=== PATIENT | female | born 1960 | race Caucasian/White ===

== ENCOUNTER → 2019-09-04 18:48 | Outpatient (BNVA) | payer MEDICARE, MEDICAID, SELFPAY | PROVIDERS: Family Provider Family Medicine; PCP Family Medicine; Visit Provider Nurse Practitioner | DX: R39.9 Unspecified symptoms and signs involving the genitourinary system (principal) | CPT/HCPCS: 81003; 87086 ==

== ENCOUNTER → 2019-09-17 16:46 | Outpatient (BNVA) | payer MEDICARE, MEDICAID, SELFPAY | PROVIDERS: Family Provider Family Medicine; PCP Family Medicine; Visit Provider Nurse Practitioner | DX: R05 Cough (principal) | CPT/HCPCS: 87804 ==

== ENCOUNTER → 2019-10-02 15:02 | Outpatient (BNVA) | payer MEDICARE, MEDICAID, SELFPAY | PROVIDERS: Family Provider Family Medicine; PCP Family Medicine; Visit Provider Family Medicine | DX: E11.9 Type 2 diabetes mellitus without complications (principal); R35.0 Frequency of micturition; E78.2 Mixed hyperlipidemia; N30.00 Acute cystitis without hematuria; I10 Essential (primary) hypertension | CPT/HCPCS: 81003; 87086 ==

== ENCOUNTER → 2019-10-10 08:38 | Outpatient (BNVA) | payer MEDICARE, MEDICAID, SELFPAY | PROVIDERS: Family Provider Family Medicine; PCP Family Medicine; Visit Provider Family Medicine | DX: E78.2 Mixed hyperlipidemia (principal); N30.00 Acute cystitis without hematuria; E11.9 Type 2 diabetes mellitus without complications | CPT/HCPCS: 80053; 80061; 81003; 83036 ==

== ENCOUNTER 2019-11-23 15:47 | Outpatient (CLI) | payer MEDICARE, MEDICAID, SELFPAY ==
--- NOTE | 2019-11-23 | USCV_ITS ---
JyotiklaudiaMi Age: 59 Gender: F : 1960 Exam Date: 11/23/2019 16:13 Ordering Phys: Alice Alvarado Technologist: Fiona Fernandez Exam Location: [facility] Indication: HX OF RT ICA ENDART Risk Factors: Previous Vascular Surgery: Right Brachial BP: / Left Brachial BP: / Right Left Velocity (cm/s) Spectral Plaque Velocity (cm/s) Spectral Plaque Syst/Diast Broadening Syst/Diast Broadening 78.90/ 18.30 Prox CCA 93.80 / 18.20 62.10/ 11.00 Mid CCA 88.20 / 22.40 34.00/ 6.00 Distal CCA 77.00 / 14.00 63.60/ 18.30 Prox ICA 158.40/ 49.80 66.20/ 21.80 Mid ICA 167.50/ 43.00 63.60/ 20.00 Distal ICA 174.30/ 29.40 119.20 ECA 99.20 0.84 ICA/CCA 1.86 Antegrade Vertebral Occluded 53.10/ 13.10 cm/s / cm/s Bi Subclavian Tri 65.30 147.1 0 CONCLUSIONS Right ICA stenosis <50%. Mild atheromatous plaque right carotid bulb/ICA. Prior right CEA. Left ICA stenosis 50-69%. Moderate atheromatous plaque left carotid bulb/ICA. Normal antegrade Doppler flow noted in the right vertebral artery. Ocluded left vertebral artery. Aaron Arreola MD (Electronically Signed) Final Date: 24 November 2019 11:04 S
== END 2019-11-23 15:48 | disposition home or self-care (01) ==
LOC: RAD 15:52
PROVIDERS: Family Provider Family Medicine; PCP Family Medicine; Visit Provider Nurse Practitioner
DX: I65.23 Occlusion and stenosis of bilateral carotid arteries
CPT/HCPCS: 93880

== ENCOUNTER → 2019-12-09 11:29 | Outpatient (BNVA) | payer MEDICARE, MEDICAID, SELFPAY | PROVIDERS: Family Provider Family Medicine; PCP Family Medicine; Visit Provider Nurse Practitioner Family | DX: N30.00 Acute cystitis without hematuria (principal) | CPT/HCPCS: 81000; 87086 ==

== ENCOUNTER → 2020-01-18 10:05 | Outpatient (BNVA) | payer MEDICARE, MEDICAID, SELFPAY | PROVIDERS: Family Provider Family Medicine; PCP Family Medicine; Visit Provider Family Medicine | DX: E11.9 Type 2 diabetes mellitus without complications (principal); Z12.83 Encounter for screening for malignant neoplasm of skin; R52 Pain, unspecified | CPT/HCPCS: 80053; 83036 ==

== ENCOUNTER → 2020-02-18 12:07 | Outpatient (BNVA) | payer MEDICARE, MEDICAID, SELFPAY | PROVIDERS: Family Provider Family Medicine; PCP Family Medicine; Visit Provider Nurse Practitioner | DX: N30.00 Acute cystitis without hematuria (principal); R82.90 Unspecified abnormal findings in urine | CPT/HCPCS: 81000; 87086 ==

== ENCOUNTER → 2020-05-02 08:04 | Outpatient (BNVA) | payer MEDICARE, MEDICAID, SELFPAY | PROVIDERS: Family Provider Family Medicine; PCP Family Medicine; Visit Provider Nurse Practitioner Psychiatric/Mental Health | DX: F33.2 Major depressive disorder, recurrent severe without psychotic features (principal); F41.1 Generalized anxiety disorder | CPT/HCPCS: 99214; 99999 ==

== ENCOUNTER → 2020-05-17 10:36 | Outpatient (BNVA) | payer MEDICARE, MEDICAID, SELFPAY | PROVIDERS: Family Provider Family Medicine; PCP Family Medicine; Visit Provider Nurse Practitioner Family | DX: N30.00 Acute cystitis without hematuria (principal); R31.29 Other microscopic hematuria | CPT/HCPCS: 81000; 87086 ==

== ENCOUNTER → 2020-05-30 09:18 | Outpatient (BNVA) | payer MEDICARE, MEDICAID, SELFPAY | PROVIDERS: Family Provider Family Medicine; PCP Family Medicine; Visit Provider Nurse Practitioner Psychiatric/Mental Health | DX: F33.2 Major depressive disorder, recurrent severe without psychotic features (principal); F41.1 Generalized anxiety disorder | CPT/HCPCS: 99214 ==

== ENCOUNTER 2020-06-04 12:31 | Outpatient (CLI) | payer MEDICARE, MEDICAID, SELFPAY ==
--- NOTE | 2020-06-04 12:38 | XR_ITS ---
WS: [id number] Left shoulder, 3 views, 06/04/2020 Clinical Data: left shoulder pain Comparison: None. Findings: No fractures or dislocations are seen. The AC joint is normal. The adjacent left clavicle, left scapu la and ribs are normal. The soft tissues are unremarkable. There are midline sternotomy sutures and an anterior cervical disc fusion. XR/XR shoulder LT min 2V* [id number] Impression: Negative left shoulder.
== END 2020-06-04 12:32 | disposition home or self-care (01) ==
LOC: RADWPI 12:35
PROVIDERS: PCP Family Medicine; Visit Provider Family Medicine
DX: M25.512 Pain in left shoulder (principal)
CPT/HCPCS: 73030

== ENCOUNTER 2020-06-20 14:08 | Outpatient (CLI) | payer MEDICARE, MEDICAID, SELFPAY ==
--- NOTE | 2020-06-20 14:24 | MR_ITS ---
WS: [id number] MRI CERVICAL SPINE HISTORY: CERVICAL DISC DISEASE WITH MYELOPATHY / COMPARISON: 12/07/2018 Normal anterior cervical alignment. Prior anterior cervical fusion plate and interbody spacers extend s from C5 through C7. No marrow edema or change in position. Disc desiccation throughout the cervical spine. No inferior displacement of cerebellar tonsils. Craniocervical junction, C1 and C2 relationship, odontoid process and soft tissues are normal. C2-C3: Normal. C3-C4: Mild osteophytes with mild encroachment upon the ventral thecal sac. Mild central and foramina l narrowing. C4-C5: Diffuse moderate osteophytic ridging and annular disc bulging. Effacement of ventral CSF. Mode rate central and bilateral foraminal stenosis. C5-C6: Mild osteophytic ridging. Very mild narrowing of the central canal and foramen. C6-C7: Mild annular disc bulging and osteophytes. Mild central and foraminal narrowing. C7-T1: Mild osteophytic ridging with encroachment upon the ventral thecal sac and foramen. Mild centr al stenosis with moderate bilateral foraminal narrowing. Paravertebral soft tissues are negative. MR/MR cervical spin wo con* [id number] IMPRESSION: 1. Prior anterior cervical fusion with interbody spacers from C5 to C7 is inta ct. No interval change. 2. Multilevel central and foraminal stenosis. No significant progression since 12/07/2018. 3. Moderate central stenosis at C4-5 and mild bilateral foraminal stenosis. 4. Mild central and foraminal stenosis at C3-4, C5-6 and C6-7. 5. Mild central and bilateral foraminal narrowing at C7-T1.
== END 2020-06-20 14:09 | disposition home or self-care (01) ==
PROVIDERS: PCP Family Medicine; Visit Provider Family Medicine
DX: M50.00 Cervical disc disorder with myelopathy, unspecified cervical region (principal); M43.22 Fusion of spine, cervical region; M48.02 Spinal stenosis, cervical region
CPT/HCPCS: 72141

== ENCOUNTER → 2020-06-25 08:21 | Outpatient (BNVA) | payer MEDICARE, MEDICAID, SELFPAY | PROVIDERS: PCP Family Medicine; Referring Provider Family Medicine; Visit Provider Anesthesiology Pain Medicine | DX: M50.00 Cervical disc disorder with myelopathy, unspecified cervical region (principal); M75.02 Adhesive capsulitis of left shoulder; M19.012 Primary osteoarthritis, left shoulder | CPT/HCPCS: 99204 ==

== ENCOUNTER → 2020-07-11 08:35 | Outpatient (BNVA) | payer MEDICARE, MEDICAID, SELFPAY | PROVIDERS: PCP Family Medicine; Visit Provider Nurse Practitioner Psychiatric/Mental Health | DX: F33.2 Major depressive disorder, recurrent severe without psychotic features (principal); F41.1 Generalized anxiety disorder | CPT/HCPCS: 99213 ==

== ENCOUNTER 2020-07-24 08:26 | Outpatient (CLI) | payer MEDICARE, MEDICAID, SELFPAY ==
--- NOTE | 2020-07-24 08:42 | MR_ITS ---
WS: [id number] MRI LEFT SHOULDER NONCONTRAST TECHNIQUE: Sagittal T2, coronal T1, T2 and proton density imaging. Axial gradient PDE imaging. CLINICAL INFORMATION: PAIN LOSS OF FUNCTION COMPARISON: None. FINDINGS: Moderate degenerative arthritis at the AC joint with edema. Small amount of fluid in the AC joint. Mi ld downsloping acromion. Mild narrowing of the subacromial space. Mild chronic thinning of the supras pinatus. Supraspinatus is intact. Infraspinatus is intact. Normal teres minor and subscapularis. Normal biceps tendon in the bicipital groove. Degenerative fraying of the glenoid labrum which appear s grossly intact. Moderate degenerative arthritis glenohumeral joint. Normal soft tissues. Normal bic eps labral anchor. MR/MR shoulder LT wo con* [id number] IMPRESSION: 1. Moderate degenerative arthritis at the AC joint with mild edema and mild do wnsloping acromion. 2. Mild chronic thinning of the distal supraspinatus appears intact. Rotator c uff is otherwise intact. 3. Normal biceps tendon in the bicipital groove. 4. Degenerative fraying of the glenoid labrum. 5. Normal visualized soft tissues.
== END 2020-07-24 08:27 | disposition home or self-care (01) ==
LOC: RADWPI 08:32
PROVIDERS: PCP Family Medicine; Visit Provider Anesthesiology Pain Medicine
DX: M19.012 Primary osteoarthritis, left shoulder (principal)
CPT/HCPCS: 73221

== ENCOUNTER → 2020-07-29 09:38 | Outpatient (BNVA) | payer MEDICARE, MEDICAID, SELFPAY | PROVIDERS: PCP Family Medicine; Visit Provider Family Medicine | DX: E11.9 Type 2 diabetes mellitus without complications (principal); E78.2 Mixed hyperlipidemia; I10 Essential (primary) hypertension | CPT/HCPCS: 80053; 80061; 83036 ==

== ENCOUNTER → 2020-08-07 08:30 | Outpatient (BNVA) | payer MEDICARE, MEDICAID, SELFPAY | PROVIDERS: PCP Family Medicine; Visit Provider Anesthesiology Pain Medicine | DX: M54.2 Cervicalgia (principal); M19.012 Primary osteoarthritis, left shoulder; M75.02 Adhesive capsulitis of left shoulder | CPT/HCPCS: 99213; 99214 ==

== ENCOUNTER → 2020-08-22 09:21 | Outpatient (BNVA) | payer MEDICARE, MEDICAID, SELFPAY | PROVIDERS: PCP Family Medicine; Visit Provider Nurse Practitioner Psychiatric/Mental Health | DX: F33.2 Major depressive disorder, recurrent severe without psychotic features (principal); F41.1 Generalized anxiety disorder | CPT/HCPCS: 99213 ==

== ENCOUNTER → 2020-09-02 14:37 | Outpatient (BNVA) | payer MEDICARE, MEDICAID, SELFPAY | PROVIDERS: PCP Family Medicine; Referring Provider Anesthesiology Pain Medicine; Visit Provider Specialist | DX: M25.512 Pain in left shoulder (principal) | CPT/HCPCS: 73020 ==

== ENCOUNTER 2020-09-10 14:01 | Outpatient (RCR) | payer MEDICARE, MEDICAID, SELFPAY | END 2020-09-29 23:59 | disposition home or self-care (01) | LOC: SPT 14:01 | PROVIDERS: PCP Family Medicine; Referring Provider Specialist; Visit Provider Specialist | DX: M19.012 Primary osteoarthritis, left shoulder (principal) | CPT/HCPCS: 97110; 97162 ==

== ENCOUNTER → 2020-10-17 08:10 | Outpatient (BNVA) | payer MEDICARE, MEDICAID, SELFPAY | PROVIDERS: PCP Family Medicine; Visit Provider Nurse Practitioner Psychiatric/Mental Health | DX: F33.2 Major depressive disorder, recurrent severe without psychotic features (principal); F41.1 Generalized anxiety disorder | CPT/HCPCS: 99214 ==

== ENCOUNTER 2020-11-19 13:06 | Outpatient (CLI) | payer MEDICARE, MEDICAID, SELFPAY ==
--- NOTE | 2020-11-19 13:10 | USCV_ITS ---
Mi Barreto Age: 60 Gender: F : 1960 Exam Date: 11/19/2020 13:21 Ordering Phys: Terence Turner MD Technologist: Randa Coelho Exam Location: [place] Indication: STENOSIS Risk Factors: RT ENDARTERECTOMY X 3 YRS Previous Vascular Surgery: Right Brachial BP: / Left Brachial BP: / Right Left Velocity (cm/s) Spectral Plaque Velocity (cm/s) Spectral Plaque Syst/Diast Broadening Syst/Diast Broadening 200.40/12.40 Prox CCA 64.80 / 10.60 118.10/35.70 Mid CCA 92.00 / 24.10 94.80/ 20.20 Distal CCA 73.90 / 13.60 69.90/ 26.40 Prox ICA 238.60/ 67.00 66.80/ 20.21 Mid ICA 234.70/ 53.20 79.20/ 28.00 Distal ICA 173.50/ 53.20 147.60 ECA 221.60 0.40 ICA/CCA 2.59 Antegrade Vertebral Antegrade 64.40/ 11.80 cm/s 88.70/ 13.80 cm/s Tri Subclavian Tri FINDINGS Moderate to heavy heterogeneous plaques of the left bifurcation and internal carotid artery Heavy heterogeneous plaques were also noted in the external carotid artery, in the proximal segment. Minimal plaques at the right bifurcation and proximal carotid artery Mild diffuse plaques in the common carotid arteries bilaterally Antegrade flow in the vertebral arteries bilaterally Elevated velocity in the left external carotid artery Normal Doppler flow velocities in the subclavian arteries bilaterally CONCLUSIONS Moderate to heavy heterogeneous plaques at the left bifurcation and internal carotid artery Doppler features, consistent with 50 to 69% stenosis. Minimal plaques of the right bifurcation, suggesting less than 50% stenosis. Elevated velocity in the external carotid artery on the left side, suggestive of hemodynamically significant stenosis. Compared to the study from 11/23/2019, there appears to have some progression of disease in the left side Dr Lizeth Escobar MD [facility] (Electronically Signed) Final Date: 20 November 2020 19:42 S
== END 2020-11-19 13:07 | disposition home or self-care (01) ==
LOC: US 13:08
PROVIDERS: PCP Family Medicine; Visit Provider Surgery
DX: I65.23 Occlusion and stenosis of bilateral carotid arteries (principal)
CPT/HCPCS: 93880

== ENCOUNTER → 2020-12-01 12:12 | Outpatient (BNVA) | payer MEDICARE, MEDICAID, SELFPAY | PROVIDERS: PCP Family Medicine; Visit Provider Nurse Practitioner Family | DX: J02.9 Acute pharyngitis, unspecified (principal) | CPT/HCPCS: 87071; 87880 ==

== ENCOUNTER → 2020-12-18 07:41 | Outpatient (BNVA) | payer MEDICARE, MEDICAID, SELFPAY | PROVIDERS: PCP Family Medicine; Visit Provider Nurse Practitioner Psychiatric/Mental Health | DX: F33.2 Major depressive disorder, recurrent severe without psychotic features (principal); F41.1 Generalized anxiety disorder | CPT/HCPCS: 99214 ==

== ENCOUNTER 2020-12-23 06:57 | Outpatient (CLI) | payer MEDICARE, MEDICAID, SELFPAY ==
--- NOTE | 2020-12-23 07:15 | USCV_ITS ---
Mi Barreto Age: 60 Gender: F : 1960 Exam Date: 12/23/2020 07:46 Ordering Phys: Lizeth Escobar MD ([email or web address]) Technologist: Michele Brantley Exam Location: [facility] Indication: PAD Risk Factors: Smoker Previous Vascular Surgery: CABG RIGHT LEFT BP: 120.0 / 70.00 BP: 120.0/ 701.00 0 0 Waveform Velocity (cm/s) Velocity (cm/s) Waveform Biphasic 129.0 Iliac Prox 138.7 Monophasic Biphasic 94.6 Iliac Mid 148.7 Monophasic Biphasic 89.7 Iliac Distal 165.4 Monophasic Biphasic 88.9 MOTION PICTURE CAMERAMAN 72.3 Monophasic Biphasic 93.8 SFA Prox 37.6 Monophasic Biphasic SFA Mid Monophasic 163.6 34.7 Biphasic 143.0 SFA Dist 30.8 Monophasic Biphasic 35.6 POP 35.7 Monophasic Biphasic 38.0 SCHOOL OPERATIONS MANAGER 21.2 Monophasic Biphasic 47.3 DPA 24.3 Monophasic 1.0 BORIS 0.6 FINDINGS Moderate diffuse plaques in the femoral and popliteal artery on the right side Moderate to heavy plaques in the left iliac artery Relatively low Doppler flow velocities in the femoral, popliteal and infrapopliteal vessels on the left side Resting BORIS 1.0 on the right side and 0.6 on the left side . CONCLUSIONS 1. Abnormal resting BORIS and Doppler features suggestive of high- grade stenosis in the left iliac artery. 2. Normal resting BORIS with abnormal Doppler features suggestive of less than 60% stenosis in the right superficial femoral artery 3. Moderate to heavy plaques in the left iliac artery 4. Moderate diffuse plaques in the right superficial femoral artery 5. No similar previous studies are available for comparison. Dr Lizeth Escobar MD [facility] (Electronically Signed) Final Date: 30 Dec 2020 08:31 S
== END 2020-12-23 06:58 | disposition home or self-care (01) ==
LOC: RAD 06:59
PROVIDERS: PCP Family Medicine; Visit Provider Internal Medicine Cardiovascular Disease
DX: I70.292 Other atherosclerosis of native arteries of extremities, left leg (principal)
CPT/HCPCS: 93925

== ENCOUNTER 2020-12-31 07:48 | Outpatient (CLI) | payer MEDICARE, MEDICAID, SELFPAY ==
--- NOTE | 2020-12-31 07:58 | CT_ITS ---
WS: [id number] CT ANGIOGRAM CEREBRAL AND CAROTID ARTERIES HISTORY: ASYMPTOMATIC BILATERAL CAROTID ARTERY STENOSIS TECHNIQUE: CT angiogram is performed of the carotid and cerebral arteries. During arterial injection imaging is obtained from the skull vertex to the aortic arch in 1.25 mm imaging. Coronal and sagittal reformats are submitted. Additional multi planar reformats of the carotid and cerebral arteries are submitted, MIP imaging also reviewed. NASCET criteria utilized. All CT scans at [facility] use at least one of these dose optimization techniques: automated exposure control; mA and/or kV ad justment per patient size (includes targeted exams where dose is matched to clinical indication); or iterative reconstruction. CONTRAST: Omnipaque 350; 95 mL IV. DLP: 2088.38 mGycm COMPARISON: 12/25/2015 Carotid Angiogram: Right carotid: Common carotid artery: Moderate stenosis involving the origin of the innominate from the aortic arch. Calcified plaque with no stenosis involving the origin of the RIGHT common carotid artery. Internal carotid artery: Small amount of plaque with no stenosis. No high-grade stenosis. External carotid artery: Patent. Left carotid: Common carotid artery: Calcified plaque at the origin of the common carotid artery. Internal carotid artery: Calcified plaque in the mid to distal common carotid artery extending throug h the bifurcation. LEFT ICA stenosis proximally 65%. External carotid artery: Patent. Right vertebral artery: Scattered calcified plaque throughout the RIGHT vertebral artery. Left vertebral artery: Small caliber vertebral artery. No occlusion. Subclavian arteries: Scattered plaque within the subclavian arteries. Upper thorax: Normal. Thyroid gland: Normal. Osseous structures: Prior anterior cervical fusion at C5-C7 with interbody spacers. CEREBRAL ANGIOGRAM: Intracranial vertebral arteries: Normal with no significant atherosclerosis. Basilar artery: No significant stenosis or occlusion. No aneurysm. Intracranial Internal carotid arteries: Mild scattered calcified plaque through the petrous and deangelo nous portions and supraclinoid portions of the ICAs. Moderate stenosis but probably less than 50% of the intracranial carotid arteries. Middle cerebral arteries: Normal. Anterior cerebral arteries and ACOM: Normal. Posterior cerebral arteries and PCOM's: Normal. Dural venous sinuses are normally enhancing. Mastoid air cells: Normal. Paranasal sinuses: Normal. Calvarium: Normal. CT/CT angio headneck* [id number] IMPRESSION: 1. Moderate LEFT ICA stenosis at 65%. Increased from 49% on 12/25/2015. 2. No significant carotid artery stenosis on the RIGHT. 3. Heavy calcified plaque at the origin of the innominate and also the LEFT co mmon carotid artery from the arch. Calcific burden has increased since 2016 but percent stenosis difficult to obtain due to significant artifact. There is at least 50% stenosis at the origins. Consider dedicated CTA of the aortic arch fo r further evaluation. 4. There is moderate scattered calcified plaque in the subclavian arteries and the intracranial carotid arteries.
[2020-12-31] MEDS: iohexol 350 mg/mL 100 mL Btl IV (08:33)
== END 2020-12-31 07:49 | disposition home or self-care (01) ==
PROVIDERS: PCP Family Medicine; Visit Provider Surgery
DX: I65.23 Occlusion and stenosis of bilateral carotid arteries (principal)
CPT/HCPCS: 70496; 70498; Q9967

== ENCOUNTER → 2021-01-07 14:20 | Outpatient (BNVA) | payer MEDICARE, MEDICAID, SELFPAY | PROVIDERS: PCP Family Medicine; Visit Provider Family Medicine | DX: I10 Essential (primary) hypertension (principal); E78.2 Mixed hyperlipidemia; E11.9 Type 2 diabetes mellitus without complications; Z00.00 Encounter for general adult medical examination without abnormal findings; M12.812 Other specific arthropathies, not elsewhere classified, left shoulder; F41.1 Generalized anxiety disorder | CPT/HCPCS: 80053; 80061; 83036 ==

== ENCOUNTER → 2021-01-24 11:06 | Outpatient (BNVA) | payer MEDICARE, MEDICAID, SELFPAY | PROVIDERS: PCP Family Medicine; Visit Provider Surgery | DX: Z01.812 Encounter for preprocedural laboratory examination (principal); Z20.822 Contact with and (suspected) exposure to COVID-19 | CPT/HCPCS: 87635 ==

== ENCOUNTER → 2021-02-10 11:33 | Outpatient (BNVA) | payer MEDICARE, MEDICAID, SELFPAY | PROVIDERS: PCP Family Medicine; Visit Provider Surgery | DX: Z01.812 Encounter for preprocedural laboratory examination (principal); Z20.822 Contact with and (suspected) exposure to COVID-19 | CPT/HCPCS: 87635 ==

== ENCOUNTER 2021-02-28 06:03 | Inpatient (IN) | payer MEDICARE, MEDICAID, SELFPAY ==
[2021-02-28] VITALS (19 sets, daily range): BP systolic 78–125; BP diastolic 46–89; PULSE 59–103; RESP 16–28; TEMP 36.8–37.6; O2SAT 80–99; BMI 33.7
[2021-02-28 06:21] LABS: Glucose Point of Care 444 mg/dL (70-110)
--- NOTE | 2021-02-28 06:26 | XRR_ITS ---
PROCEDURE INFORMATION: Exam: XR Chest Exam date and time: 02/28/2021 6:26 AM Age: 60 years old Clinical indication: Cough and shortness of breath; Prior surgery; Surgery date: 6+ months; Surgery type: Open heart; Patient HX: C/O shortness of breath; Dyspnea; Hypoxia; Additional info: Dyspnea. , Hypoxia TECHNIQUE: Imaging protocol: XR of the chest. Views: 1 view. COMPARISON: CR XR shoulder LT 1V [id number] 09/02/2020 2:43 PM FINDINGS: Lungs: Bilateral interstitial pulmonary infiltrates are present with patchy basilar consolidation. This is consistent with bilateral pneumonia. This could be viral. Pleural spaces: Unremarkable. No pleural effusion. No pneumothorax. Heart/Mediastinum: The patient has undergone coronary bypass surgery and lower cervical spine fusion. The heart is normal for the AP projection. Bones/joints: No acute bony abnormality. XR/XR chest 1V portable [id number] IMPRESSION: Bilateral pulmonary infiltrates consistent with pneumonia. This may be viral in nature.
--- NOTE | 2021-02-28 06:46 | ED_ITS ---
HPI - COVID General: Chief Complaint: COVID symptoms Stated Complaint: DIFF BREATHING Time Seen by Provider: 02/28/21 06:08 Triage information: Has fever, cough or shortness of breath . No known COVID + exposure last 14 days History of Present Illness: HPI Narrative: 60-year-old female presents emergency room with complaints of shortness of breath. Patient had a femoropopliteal bypass within the last week. She has had cough low-grade fever myalgias headache loose stools that began yesterday. She has not had any anosmia at this point. She denies any chest pain the cough has been nonproductive MD complaint: has COVID symptoms Prior covid testing: yes, results known (Presurgical testing was negative) COVID 19 common symptoms: positive fever(s), chills, cough, non-productive cough, dyspnea, fatigue, body aches, headache(s), nasal congestion and nausea COVID 19 other sytmptoms: positive requiring oxygen; negative chest pain Onset (ago): hour(s) Severity: severe Pertinent comorbid conditions: hypertension, heart disease, COPD/respiratory disease and obesity COVID Results: SARS-CoV-2 Antigen (Rapid) Positive (Negative) H 02/28/21 06:20 02/28/21 SARS-CoV-2 RNA (RT-PCR) Detected (NOT DETECTED) A 02/28/21 07:50 02/28/21 Nasal/Oral Coronavirus 2019 PCR Not detected 02/10/21 11:33 02/10/21 Review of Systems Const: Reports: fever(s), chills, body aches and fatigue ENMT: Reports: nasal congestion Card: Denies: chest pain, edema, dyspnea on exertion or orthopnea Resp: Reports: dyspnea and non-productive cough GI: Reports: nausea : Denies: flank pain, difficulty voiding, dysuria, urinary frequency or urinary urgency Skin/Breast: Denies: rash or pruritus Neuro: Reports: headache(s) PFSH ED PFSH: Medical History (Updated 03/02/21 @ 15:39 by Ishan Bryant DO) ASHD (arteriosclerotic heart disease) Carotid artery stenosis Carpal tunnel syndrome Cervical disc disease with myelopathy Diabetes Generalized anxiety disorder GERD (gastroesophageal reflux disease) Hyperlipidemia Hypertension Lumbar disc disease Major depressive disorder, recurrent episode, severe with seasonal pattern Obesity Peripheral vascular disease Surgical History (Updated 03/02/21 @ 03:24 by Capri Ware MD) H/O hernia repair H/O hysterectomy with oophorectomy H/O neck surgery History of bladder surgery History of carotid endarterectomy History of femoropopliteal bypass Hx of CABG Hx of tubal ligation Family History Father CAD (coronary artery disease) Diabetes Stroke Grandmother CAD (coronary artery disease) Family/Other Cancer Mother Dementia Brother Diabetes Grandfather Lung disease Denies family history of Clotting disorder Chronic kidney disease (CKD) Suicide Anesthesia complication Bleeding disorder Social History Smoking and tobacco status: former smoker Alcohol intake: never History of recent travel: No Current gender identity: Female Physical Exam Const: GENERAL APPEARANCE: cooperative ORIENTATION/CONSCIOUSNESS: Yes awake, Yes oriented to person, Yes oriented to place and Yes oriented to time HENMT: COMMON NORMALS: normocephalic, atraumatic and hearing grossly normal bilaterally HEAD & SCALP: normocephalic and atraumatic Neck/C-Spine: COMMON NORMALS: no JVD Resp: AUSCULTATION: crackles and wheezes Cardio: COMMON NORMALS: no JVD, regular rate, regular rhythm and No murmurs present (Cardio) RATE: regular rate RHYTHM: regular rhythm GI: COMMON NORMALS: Soft to palpation and No hepatosplenomegaly present AUSCULTATION: Yes normoactive bowel sounds PALPATION: Yes Soft to palpation, No Tenderness to palpation present (GI), No Guarding due to palpation present (GI) and Yes No hepatosplenomegaly present Extremity: COMMON NORMALS: normal to inspection, capillary refill normal, no clubbing, cyanosis or edema, no calf tenderness and no pedal edema Neuro: SENSORIUM/ORIENTATION: Yes oriented to person, Yes oriented to place and Yes oriented to time Skin: COMMON NORMALS: no rashes or lesions noted GENERAL SKIN EXAM: no rashes or lesions noted Course Vital Signs: Vital signs: Vital Signs Temperature 98.1 F 03/02/21 12:00 Pulse Rate 81 03/02/21 12:00 Respiratory Rate 16 03/02/21 12:00 Blood Pressure 115/74 03/02/21 12:00 Pulse Oximetry 95 03/02/21 12:00 MDM - COVID MDM Narrative: Medical decision making narrative: Severe Covid pneumonitis will admit to start remdesivir and dexamethasone. Discussed Dr. Smith he will evaluate for Actemra. Patient on high flow nasal cannula at this time. Lab Data: Labs: Lab Results 02/28/21 02/28/21 02/28/21 Range/Units 06:16 06:20 07:25 WBC (4.0-10.0) 10^3/ uL RBC (4.1-5.3) 10^6/u L Hgb (11.5-15.3) g/dL Hct (37.0-47.0) % MCV (81-99) fL MCH (28.0-34.0) pg MCHC (30.0-36.0) g/dL RDW (12.1-15.1) % Plt Count (130-400) 10^3/c mm MPV (7.4-10.4) fL Neut % (Auto) % Lymph % (Auto) % Dickens % (Auto) % Eos % (Auto) % Baso % (Auto) % Neut # (Auto) (1.8-7.7) 10^3/u L Lymph # (Auto) (0.8-4.8) 10^3/u L Dickens # (Auto) (0.2-0.9) 10^3/u L Eos # (Auto) (0.0-0.8) 10^3/u L Baso # (Auto) (0.0-0.1) 10^3/u L Nucleated RBC % (a uto) % Nucleated RBCs # /100WBC D-Dimer (0-0.59) ug/mIFE U Specimen Type Arterial Sample Site Lr ABG pH 7.36 (7.35-7.45) ABG pCO2 33.2 L (35-45) mmHg ABG pO2 77.3 L (80.0-100.0) mmH g ABG HCO3 18.7 L (22-26) mmol/L ABG Base Excess -6.0 L (-2.0-2.0) mmol/ L Issa Test Pos Hematocrit 30.5 L (37-47) % O2 Delivery Device Nc O2 Liters/Min 7.0 % Petroleum Refining Firer ID Jmn Sodium (136-145) mmol/L Potassium (3.5-5.1) mmol/L Chloride (98-107) mmol/L Carbon Dioxide (22-29) mmol/L Anion Gap (5-19) BUN (6-20) mg/dL Creatinine (0.5-0.9) mg/dL GFR Calculation (90-130) mL/min Glucose (65-115) mg/dL POC Glucose 444 H (70-110) mg/dL Calculated Osmolal ity (285-295) mOsm/k g Lactic Acid (0.5-2.2) mmol/L Lactic Acid (Sepsi s) (0.5-2.2) mmol/L Calcium (8.5-10.5) mg/dL Total Bilirubin (0.15-1.2) mg/dL AST (0-32) U/L ALT (0-33) U/L Alkaline Phosphata se (35-105) IU/L Troponin T Gen 5 n g/L (0-10) ng/L C-Reactive Protein (0.0-4.9) mg/L NT-Pro-B Natriuret Pep (0-125) pg/mL Total Protein (6.6-8.7) g/dL Albumin (3.5-5.2) g/dL Globulin (1.3-4.6) g/dL Nasal/Oral COVID-1 9 PCR SARS-CoV-2 RNA (RT -PCR) (NOT DETECTED) SARS-CoV-2 Ag (Rap id) Positive H (Negative) 02/28/21 02/28/21 02/28/21 Range/Units 07:30 07:30 07:30 WBC 8.0 (4.0-10.0) 10^3/ uL RBC 2.99 L (4.1-5.3) 10^6/u L Hgb 9.0 L (11.5-15.3) g/dL Hct 29.4 L (37.0-47.0) % MCV 98.3 (81-99) fL MCH 30.1 (28.0-34.0) pg MCHC 30.6 (30.0-36.0) g/dL RDW 14.4 (12.1-15.1) % Plt Count 538 H (130-400) 10^3/c mm MPV 10.1 (7.4-10.4) fL Neut % (Auto) 83.1 % Lymph % (Auto) 10.8 % Dickens % (Auto) 5.0 % Eos % (Auto) 0.0 % Baso % (Auto) 0.4 % Neut # (Auto) 6.68 (1.8-7.7) 10^3/u L Lymph # (Auto) 0.9 (0.8-4.8) 10^3/u L Dickens # (Auto) 0.4 (0.2-0.9) 10^3/u L Eos # (Auto) 0.0 (0.0-0.8) 10^3/u L Baso # (Auto) 0.0 (0.0-0.1) 10^3/u L Nucleated RBC % (a uto) 0.4 % Nucleated RBCs # 0.0 /100WBC D-Dimer (0-0.59) ug/mIFE U Specimen Type Sample Site ABG pH (7.35-7.45) ABG pCO2 (35-45) mmHg ABG pO2 (80.0-100.0) mmH g ABG HCO3 (22-26) mmol/L ABG Base Excess (-2.0-2.0) mmol/ L Issa Test Hematocrit (37-47) % O2 Delivery Device O2 Liters/Min % Petroleum Refining Firer ID Sodium 128 L (136-145) mmol/L Potassium 6.2 H (3.5-5.1) mmol/L Chloride 89 L (98-107) mmol/L Carbon Dioxide 18 L (22-29) mmol/L Anion Gap 27.2 H (5-19) BUN 9 (6-20) mg/dL Creatinine 0.8 (0.5-0.9) mg/dL GFR Calculation 73.4 L (90-130) mL/min Glucose 407 H (65-115) mg/dL POC Glucose (70-110) mg/dL Calculated Osmolal ity 282 L (285-295) mOsm/k g Lactic Acid 6.1 H* (0.5-2.2) mmol/L Lactic Acid (Sepsi s) (0.5-2.2) mmol/L Calcium 8.3 L (8.5-10.5) mg/dL Total Bilirubin 0.7 (0.15-1.2) mg/dL AST 44 H (0-32) U/L ALT 20 (0-33) U/L Alkaline Phosphata se 95 (35-105) IU/L Troponin T Gen 5 n g/L (0-10) ng/L C-Reactive Protein 120.6 H (0.0-4.9) mg/L NT-Pro-B Natriuret Pep 2599 H (0-125) pg/mL Total Protein 6.5 L (6.6-8.7) g/dL Albumin 4.0 (3.5-5.2) g/dL Globulin 2.5 (1.3-4.6) g/dL Nasal/Oral COVID-1 9 PCR SARS-CoV-2 RNA (RT -PCR) (NOT DETECTED) SARS-CoV-2 Ag (Rap id) (Negative) 02/28/21 02/28/21 02/28/21 Range/Units 07:30 07:30 07:50 WBC (4.0-10.0) 10^3/ uL RBC (4.1-5.3) 10^6/u L Hgb (11.5-15.3) g/dL Hct (37.0-47.0) % MCV (81-99) fL MCH (28.0-34.0) pg MCHC (30.0-36.0) g/dL RDW (12.1-15.1) % Plt Count (130-400) 10^3/c mm MPV (7.4-10.4) fL Neut % (Auto) % Lymph % (Auto) % Dickens % (Auto) % Eos % (Auto) % Baso % (Auto) % Neut # (Auto) (1.8-7.7) 10^3/u L Lymph # (Auto) (0.8-4.8) 10^3/u L Dickens # (Auto) (0.2-0.9) 10^3/u L Eos # (Auto) (0.0-0.8) 10^3/u L Baso # (Auto) (0.0-0.1) 10^3/u L Nucleated RBC % (a uto) % Nucleated RBCs # /100WBC D-Dimer 3.55 H (0-0.59) ug/mIFE U Specimen Type Sample Site ABG pH (7.35-7.45) ABG pCO2 (35-45) mmHg ABG pO2 (80.0-100.0) mmH g ABG HCO3 (22-26) mmol/L ABG Base Excess (-2.0-2.0) mmol/ L Issa Test Hematocrit (37-47) % O2 Delivery Device O2 Liters/Min % Petroleum Refining Firer ID Sodium (136-145) mmol/L Potassium (3.5-5.1) mmol/L Chloride (98-107) mmol/L Carbon Dioxide (22-29) mmol/L Anion Gap (5-19) BUN (6-20) mg/dL Creatinine (0.5-0.9) mg/dL GFR Calculation (90-130) mL/min Glucose (65-115) mg/dL POC Glucose (70-110) mg/dL Calculated Osmolal ity (285-295) mOsm/k g Lactic Acid (0.5-2.2) mmol/L Lactic Acid (Sepsi s) (0.5-2.2) mmol/L Calcium (8.5-10.5) mg/dL Total Bilirubin (0.15-1.2) mg/dL AST (0-32) U/L ALT (0-33) U/L Alkaline Phosphata se (35-105) IU/L Troponin T Gen 5 n g/L 88 H (0-10) ng/L C-Reactive Protein (0.0-4.9) mg/L NT-Pro-B Natriuret Pep (0-125) pg/mL Total Protein (6.6-8.7) g/dL Albumin (3.5-5.2) g/dL Globulin (1.3-4.6) g/dL Nasal/Oral COVID-1 9 PCR Cancelled SARS-CoV-2 RNA (RT -PCR) (NOT DETECTED) SARS-CoV-2 Ag (Rap id) (Negative) 02/28/21 02/28/21 Range/Units 07:50 10:55 WBC (4.0-10.0) 10^3/ uL RBC (4.1-5.3) 10^6/u L Hgb (11.5-15.3) g/dL Hct (37.0-47.0) % MCV (81-99) fL MCH (28.0-34.0) pg MCHC (30.0-36.0) g/dL RDW (12.1-15.1) % Plt Count (130-400) 10^3/c mm MPV (7.4-10.4) fL Neut % (Auto) % Lymph % (Auto) % Dickens % (Auto) % Eos % (Auto) % Baso % (Auto) % Neut # (Auto) (1.8-7.7) 10^3/u L Lymph # (Auto) (0.8-4.8) 10^3/u L Dickens # (Auto) (0.2-0.9) 10^3/u L Eos # (Auto) (0.0-0.8) 10^3/u L Baso # (Auto) (0.0-0.1) 10^3/u L Nucleated RBC % (a uto) % Nucleated RBCs # /100WBC D-Dimer (0-0.59) ug/mIFE U Specimen Type Sample Site ABG pH (7.35-7.45) ABG pCO2 (35-45) mmHg ABG pO2 (80.0-100.0) mmH g ABG HCO3 (22-26) mmol/L ABG Base Excess (-2.0-2.0) mmol/ L Issa Test Hematocrit (37-47) % O2 Delivery Device O2 Liters/Min % Petroleum Refining Firer ID Sodium (136-145) mmol/L Potassium (3.5-5.1) mmol/L Chloride (98-107) mmol/L Carbon Dioxide (22-29) mmol/L Anion Gap (5-19) BUN (6-20) mg/dL Creatinine (0.5-0.9) mg/dL GFR Calculation (90-130) mL/min Glucose (65-115) mg/dL POC Glucose (70-110) mg/dL Calculated Osmolal ity (285-295) mOsm/k g Lactic Acid (0.5-2.2) mmol/L Lactic Acid (Sepsi s) 1.2 (0.5-2.2) mmol/L Calcium (8.5-10.5) mg/dL Total Bilirubin (0.15-1.2) mg/dL AST (0-32) U/L ALT (0-33) U/L Alkaline Phosphata se (35-105) IU/L Troponin T Gen 5 n g/L (0-10) ng/L C-Reactive Protein (0.0-4.9) mg/L NT-Pro-B Natriuret Pep (0-125) pg/mL Total Protein (6.6-8.7) g/dL Albumin (3.5-5.2) g/dL Globulin (1.3-4.6) g/dL Nasal/Oral COVID-1 9 PCR SARS-CoV-2 RNA (RT -PCR) Detected A (NOT DETECTED) SARS-CoV-2 Ag (Rap id) (Negative) COVID Results: SARS-CoV-2 Antigen (Rapid) Positive (Negative) H 02/28/21 06:20 02/28/21 SARS-CoV-2 RNA (RT-PCR) Detected (NOT DETECTED) A 02/28/21 07:50 02/28/21 Nasal/Oral Coronavirus 2019 PCR Not detected 02/10/21 11:33 02/10/21 Discharge Plan Discharge Patient Disposition: Admitted As Inpatient Admit Provider: Khang Gallardo Clinical Impression: Pneumonia due to COVID-19 virus, ASHD (arteriosclerotic heart disease), Carotid artery stenosis, Hypertension, Diabetes, Hyperkalemia, Anemia Condition: Stable Coding Level of Care Code ED Java Scala Developer for Reji Crouch
[2021-02-28] MEDS: dexamethasone 4 mg/mL INJ 6 MG IVP ×2 (07:32→08:32)
[2021-02-28 07:36] LABS: Basophils % 0.4 %; Hematocrit 29.4 % (37.0-47.0); Lymphocytes # 0.9 10^3/uL (0.8-4.8); Lymphocytes % 10.8 %; Mean Corpuscular HGB Conc 30.6 g/dL (30.0-36.0); Mean Corpuscular Hemoglobin 30.1 pg (28.0-34.0); Mean Corpuscular Volume 98.3 fL (81-99); Mean Platelet Volume 10.1 fL (7.4-10.4); Monocytes # 0.4 10^3/uL (0.2-0.9); Neutrophils # 6.68 10^3/uL (1.8-7.7); Neutrophils % 83.1 %; Nucleated Red Blood Cells % 0.4 %; Platelet Count 538 10^3/cmm (130-400); Red Blood Count 2.99 10^6/uL (4.1-5.3); Red Cell Distribution Width 14.4 % (12.1-15.1)
[2021-02-28 07:41] LABS: ABG PCO2 33.2 mmHg (35-45); ABG PH Result 7.36 (7.35-7.45); HCO3 ABG 18.7 mmol/L (22-26); PO2 ABG 77.3 mmHg (80.0-100.0)
[2021-02-28 07:42] LABS: Arterial Blood Gas Hematocrit 30.5 % (37-47); Blood Gas Allen Test POS; Blood Gas Sample Site LR; Blood Gas Sample Type ARTERIAL; Oxygen Device NC
[2021-02-28 08:02] LABS: Lactic Sepsis W/Reflex 6.1 mmol/L (0.5-2.2)
[2021-02-28 08:09] LABS: Alanine Aminotransferase 20 U/L (0-33); Alkaline Phosphatase 95 IU/L (35-105); Anion Gap 27.2 (5-19); Aspartate Amino Transferase 44 U/L (0-32); Blood Urea Nitrogen 9 mg/dL (6-20); C Reactive Protein 120.6 mg/L (0.0-4.9); Calcium 8.3 mg/dL (8.5-10.5); Carbon Dioxide 18 mmol/L (22-29); Chloride 89 mmol/L (98-107); Globulin 2.5 g/dL (1.3-4.6); Glomerular Filtration Rate 73.4 mL/min (90-130); Glucose 407 mg/dL (65-115); NT Pro B Type Natriuretic Pept 2599 pg/mL (0-125); Osmolality Calculated 282 mOsm/kg (285-295); Potassium 6.2 mmol/L (3.5-5.1); Sodium 128 mmol/L (136-145); Total Bilirubin 0.7 mg/dL (0.15-1.2); Total Protein 6.5 g/dL (6.6-8.7)
[2021-02-28 08:18] LABS: D Dimer 3.55 ug/mIFEU (0-0.59)
--- NOTE | 2021-02-28 08:19 | CT_ITS ---
WS: [id number] CT angio chest PE protcl [id number] REASON FOR EXAM: elevated d dimer TECHNIQUE: Coronal and sagittal 2-D and MIP reformations. IV CONTRAST ADMINISTERED: 80 mL of Omnipaque 350 TOTAL EXAM DLP: 511.[address] scans at [facility] use at least one of these dose optimization techniques: automat ed exposure control; mA and/or kV adjustment per patient size (includes targeted exams where dose is matched to clinical indication); or iterative reconstruction. FINDINGS: No pulmonary emboli. Questionable enlarged subcarinal lymph node. There is mild symmetric lymph node enlargement in both h ilar regions maximum solange dimensions 14 x 16 mm. Diffuse symmetric increase in the interstitium throughout both lungs. There are small focal areas of groundglass density and small areas of joanie lung consolidation with air bronchograms. No lung mass i dentified. Small bilateral pleural effusions. CT/CT angio chest PE protcl [id number] IMPRESSION: No pulmonary emboli. The patient's chest x-ray is most 83 mL of Omnipaque 350 compatible with conges tive heart failure. The findings on the CT scan are also more compatible with c ongestive heart failure. However there are findings that are inconsistent with heart failure such as the adenopathy and the actual lung consolidation. This co uld represent a pneumonitis or a pneumonitis superimposed on congestive heart f ailure. The lymph nodes are borderline adenopathy and are of uncertain signific ance in this case.
[2021-02-28] MEDS: calcium gluconate 0.1 gm/mL 10% SDV 10mL 2 GM IVP (08:32)
[2021-02-28] MEDS: insulin regular-human 100 units/1 mL 10 UNIT IVP (08:32)
[2021-02-28] MEDS: sodium chloride 0.9% (100 ml) 100 ML 200 ML (08:33)
[2021-02-28 08:34] LABS: SARS Covid-2 Antigen Positive (Negative)
[2021-02-28] MEDS: ondansetron 2 mg/ML SDV 2 mL 4 MG IVP ×2 (08:44→16:07)
[2021-02-28] MEDS: remdesivir 200 MG in sodium chloride 0.9% (100 ml) 100 ML 100 MG IV (09:04)
[2021-02-28 09:20] LABS: Reflex Lactate Order REFLEX LACTIC ORDERD
[2021-02-28] MEDS: vancomycin 1,000 MG in sodium chloride 0.9% 250 ML 250 MG IV (09:21)
[2021-02-28] MEDS: piperacillin-tazobactam 3.375 GM in sodium chloride 0.9% (plus) 50 ML IV (09:26)
[2021-02-28] MEDS: iohexol 350 mg/mL 100 mL Btl IV (09:42)
[2021-02-28 11:52] LABS: Lactic Acid level (Lactate) 1.2 mmol/L (0.5-2.2)
--- NOTE | 2021-02-28 12:51 | PC.PHAR ---
PT IS UNABLE TO CONFIRM MEDICATIONS. SHE STATES THAT SHE TAKES CARE IF THEM BY HERSELF, SHE HAS NO ONE TO HELP HER. SHE STATES THAT SHE DOESN'T KNOW IF SHE TOOK HER MEDICATIONS TODAY OR NOT. GOING BY MEDICATION HISTORY AND PHARMACY LIST.
--- NOTE | 2021-02-28 16:06 | ECG_ITS ---
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: : 1960 Requested By: Ishan Naranjo Order Number: [id number] Reading MD: BUTCH MORENO Measurements Intervals [place] Rate: 87 P: 26 KS: 141 QRS: 64 QRSD: 96 T: 131 QT: 393 QTc: 475 Interpretive Statements SINUS RHYTHM NONSPECIFIC ST & T-WAVE ABNORMALITY INTERPRETATION BASED ON A DEFAULT AGE OF 40 YEARS No previous ECG available for comparison Electronically Signed On 03-01-2021 20:29:00 CDT by BUTCH MORENO [email or web address] [email or web address] at gulfportPrairieSmartsgrand lake joint township district memorial hospitalRipple Commerce/store/NU/[id number] f
--- NOTE | 2021-02-28 16:08 | PM.HP ---
Providers/Chief Complaint Admitting Physician: Khang Gallardo MD Primary Care Provider: Neto Elizabeth MD Chief Complaint: DIFF BREATHING History of Present Illness Mi Barreto is a 60 year old female who reports she has been ill only for the last several days. She has had a cough. No fever. She has had increasing shortness of breath. She has had significant runny nose. is sick with similar symptoms. She came into the emergency department and had a rapid positive test for Covid. She has some nausea, but has not vomited. No loose stools. No blood in her stool or black or tarry stools. About a week to 10 days ago she had a femoropopliteal bypass in [place]. She is recovering from this and doing well. Lyn are still present in her left leg. Review of Systems General: Reports: 10 or more systems reviewed and unremarkable except in HPI and below Const: Reports: fatigue and malaise; Denies: fever(s) or chills Eyes: Denies: change in vision ENMT: Reports: nasal congestion; Denies: throat pain Card: Denies: chest pain Resp: Reports: dyspnea GI: Reports: nausea; Denies: abdominal pain, vomiting, hematemesis, hematochezia or melena : Denies: flank pain Musc: Denies: neck pain Skin/Breast: Denies: rash Neuro: Denies: headache(s) Psych: Denies: anxiety Endo: Denies: polyuria Gil/Lymph: Denies: easy bruising All/Imm: Denies: urticaria Medications/Allergies Home Medications Medication Instructions Recorded Confirmed Last Taken Type acetaminophen 500 mg tablet 500 mg PO Q6H PRN 09/04/19 02/28/21 Unknown History aspirin 81 mg tablet,delayed 81 mg PO DAILY@0900 09/04/19 02/28/21 02/27/21 History release loperamide 2 mg tablet 2 mg PO Q4H PRN 09/04/19 02/28/21 Unknown History multivitamin 1 tab PO DAILY@0900 09/04/19 02/28/21 02/27/21 History lisinopril 40 mg tablet 40 mg PO DAILY #90 tab 03/01/20 02/28/21 02/26/21 Rx glyburide 5 mg tablet 2.5 mg PO BID@0900,1900 tab 05/15/20 02/28/21 02/27/21 History blood sugar diagnostic See Rx Instructions .ROUTE 12/03/20 02/28/21 Unknown Rx .COMPLEX #300 strip exenatide microspheres 2 mg/0.85 2 mg SUBCUT Q7D 30 Days #4.25 ml 12/23/20 02/28/21 02/24/21 Rx mL subcutaneous auto-injector amlodipine 5 mg tablet 2.5 mg PO DAILY@0900 tab 01/29/21 02/28/21 02/26/21 History Zetia 10 mg PO DAILY@0900 02/28/21 02/28/21 02/27/21 History alprazolam 0.5 mg PO TID@0900,1200,1900 PRN 02/28/21 02/28/21 02/27/21 History bupropion HCl [Wellbutrin XL] 150 mg PO DAILY@0900 02/28/21 02/28/21 02/27/21 History carvedilol 12.5 mg PO BID@0900,1900 02/28/21 02/28/21 02/27/21 History cilostazol 100 mg PO BID@0900,1900 02/28/21 02/28/21 Unknown History clopidogrel 75 mg PO DAILY@0900 02/28/21 02/28/21 Unknown History hydrochlorothiazide 12.5 mg PO DAILY@0900 02/28/21 02/28/21 02/27/21 History metformin 1,000 mg PO BID@0900,1900 02/28/21 02/28/21 02/27/21 History oxycodone-acetaminophen 1 tab PO Q4H PRN 02/28/21 02/28/21 02/27/21 History pioglitazone 30 mg PO DAILY@0900 02/28/21 02/28/21 02/27/21 History rivaroxaban [Xarelto] 2.5 mg PO BID 02/28/21 02/28/21 02/27/21 History sertraline [Zoloft] 100 mg PO DAILY@0900 02/28/21 02/28/21 02/27/21 History simvastatin 20 mg PO DAILY@0900 02/28/21 02/28/21 02/27/21 History Allergies Allergy/AdvReac Type Severity Reaction Status Date / Time egg Allergy vomiting Verified 02/28/21 06:16 influenza A (H1N1) virus Allergy unknown Verified 02/28/21 06:16 vaccine m-altaf-split 2008 [From influenza A (H1N1)] PFSH Acute PFSH: Medical History (Updated 02/28/21 @ 16:20 by Khang Gallardo MD) ASHD (arteriosclerotic heart disease) Carotid arterial disease Carotid artery stenosis Carpal tunnel syndrome Cervical disc disease Cervical disc disease with myelopathy Diabetes Generalized anxiety disorder GERD (gastroesophageal reflux disease) Hyperlipidemia Hypertension Lumbar disc disease Major depressive disorder, recurrent episode, severe with seasonal pattern Obesity Peripheral vascular disease Surgical History (Updated 02/28/21 @ 16:11 by Khang Gallardo MD) H/O hernia repair H/O hysterectomy with oophorectomy H/O neck surgery History of bladder surgery History of carotid endarterectomy History of femoropopliteal bypass Hx of CABG Hx of tubal ligation Family History Father CAD (coronary artery disease) Diabetes Stroke Grandmother CAD (coronary artery disease) Family/Other Cancer Mother Dementia Brother Diabetes Grandfather Lung disease Denies family history of Clotting disorder Chronic kidney disease (CKD) Suicide Anesthesia complication Bleeding disorder Social History Smoking and tobacco status: former smoker Alcohol intake: never History of recent travel: No Current gender identity: Female Vitals/I&O/Wt Last Vital Signs Temp 98.7 F 02/28/21 13:25 Pulse 91 02/28/21 13:25 Resp 16 02/28/21 13:25 BP 78/54 02/28/21 13:25 Pulse Ox 97 02/28/21 13:25 02/28/21 02/28/21 02/28/21 06:59 14:59 22:59 Intake Total 2254.13 / 2254.13 Output Total 300 / 300 Balance 1953.13 / 1953.13 Weight last 48 hrs Weight 78.471 kg Physical Exam Narrative: EXAM NARRATIVE: General exam is a white female, with persistent cough HEENT: Pupils equally round. Oropharynx clear. Neck is supple no lymphadenopathy or thyromegaly Cardiovascular regular rate and rhythm without murmur, no S3 or S4 Lungs few coarse breath sounds bilaterally but no crackles. Abdomen is soft nontender positive bowel sounds. No obvious organomegaly exam is deferred Extremities no cyanosis clubbing or edema. Surgical scar left medial thigh healing well. Left groin with lyn still intact. No drainage or evidence of infection. Data : 02/28/21 16:31 02/28/21 07:30 Micro: Microbiology 02/28/21 07:28 Blood Culture - Preliminary Blood SPECIMEN COLLECTED 02/28/21 07:30 Blood Culture - Preliminary Blood SPECIMEN COLLECTED Other data: EKG has been ordered Chest x-ray bilateral infiltrates. CTA pneumonitis, no pulmonary embolisms, small bilateral effusions, no enlarged lymph nodes. Dimer elevated at 3.55 ABG demonstrates pH 7.36, PCO2 33, PO2 of 77 on 7 L Lactic acid 6.1 Calcium 8.3 CRP 120 BNP 2599 AST 44 Rapid Covid positive Blood cultures were obtained A&P Assessment and plan (1) Pneumonia due to COVID-19 virus: Continue remdesivir initiated in the emergency department Continue dexamethasone Supplemental oxygen as needed, wean as tolerated Incentive spirometry Combivent every 6 hours Status: Acute (2) Hypoxemia: See above Status: Acute (3) Hyperkalemia: Interventions given in the emergency department including calcium gluconate, insulin and glucose. Check EKG Repeat potassium. If still high consider above therapies again as well as Kayexalate Status: Acute (4) Hypotension: Patient somewhat hypotensive She has been given fluid in the emergency department Large doses of IV fluid are contraindicated secondary to her pneumonia, Covid, and possible progression to ARDS. Blood cultures have been drawn Broad-spectrum antibiotics will be given Initiate norepinephrine if needed to keep MAP greater than or equal to 65 Status: Acute (5) Anemia: Anemia panel Protonix 40 mg twice daily Stool Hemoccult Continue to follow closely to make sure this does not worsen Status: Acute (6) Diabetes: Check serum ketones For now sliding scale insulin If ketones positive consider insulin drip for DKA Status: Acute Qualifiers: Diabetes mellitus complication status: without complication Diabetes mellitus technician terminal and repeater insulin use: without senior living use Diabetes mellitus type: type 2 Qualified Code(s): E11.9 - Type 2 diabetes mellitus without complications (7) ASHD (arteriosclerotic heart disease): History of coronary disease Continue patient's Plavix, statin Hold blood pressure medicines due to hypotension Check troponin, EKG Check Echo. Hold any further IV fluid, BNP elevated. Status: Acute Additional A&P Information Multiple other medical problems as listed in past medical history Full code Continue novel anticoagulant she is on chronically which will serve for DVT prophylaxis as well. Attestations Medical Necessity Statement*: Will need greater than 2 midnight stay secondary to COVID-19 pneumonia, with multiple other medical concerns. Time Spent in Patient Care: Greater than 35 minutes Critical Care Time: Critical Care Time (min): 65 Other Attestations: The high probability of a clinically significant, sudden or life threatening deterioration of the patient's [pulmonary, cardiac, electrolyte] system(s) required my full and direct attention, intervention and personal management. The critical care time is as shown. This time is in addition to time spent performing any reported procedures but includes the following: [x] Data and vital sign review and interpretation [x] Patient assessment, examination and intervention [x] Documentation [x] Medication orders and management Coding Level of Care Code Acute Spindraw Operator for [facility] Fwd Diagnoses Pneumonia due to COVID-19 virus U07.1; J12.82 Hypoxemia R09.02 Hyperkalemia E87.5 Hypotension I95.9 Anemia D64.9 Diabetes E11.9 Diabetes mellitus complication status: without complication Diabetes mellitus technician terminal and repeater insulin use: without senior living use Diabetes mellitus type: type 2 ASHD (arteriosclerotic heart disease) I25.10
[2021-02-28 16:45] LABS: Hematocrit 24.2 % (37.0-47.0); Hemoglobin 7.6 g/dL (11.5-15.3); Lymphocytes # 0.3 10^3/uL (0.8-4.8); Lymphocytes % 9.4 %; Mean Corpuscular HGB Conc 31.4 g/dL (30.0-36.0); Mean Corpuscular Hemoglobin 30.5 pg (28.0-34.0); Mean Corpuscular Volume 97.2 fL (81-99); Mean Platelet Volume 10.3 fL (7.4-10.4); Monocytes # 0.1 10^3/uL (0.2-0.9); Monocytes % 3.4 %; Neutrophils # 2.75 10^3/uL (1.8-7.7); Neutrophils % 86.3 %; Nucleated Red Blood Cells % 0 %; Platelet Count 268 10^3/cmm (130-400); Red Blood Count 2.49 10^6/uL (4.1-5.3); Red Cell Distribution Width 14.1 % (12.1-15.1); White Blood Count 3.2 10^3/uL (4.0-10.0)
[2021-02-28 17:09] LABS: Ketone (Acetest) Serum Negative (Negative)
[2021-02-28 17:19] LABS: Iron 11 ug/dL (37-145); Percent Saturation 3.5 % (20-50); Total Iron Binding Capacity 307 mcg/dl; Unsaturated Iron Binding 296 ug/dL (112-347)
[2021-02-28 17:26] LABS: Troponin T (5th) Once 191 ng/L (0-10)
[2021-02-28 17:27] LABS: Anion Gap 17.9 (5-19); Blood Urea Nitrogen 17 mg/dL (6-20); Calcium 7.6 mg/dL (8.5-10.5); Carbon Dioxide 21 mmol/L (22-29); Chloride 96 mmol/L (98-107); Glomerular Filtration Rate 64.1 mL/min (90-130); Glucose 317 mg/dL (65-115); Iron 12 ug/dL (37-145); Osmolality Calculated 284 mOsm/kg (285-295); Potassium 4.9 mmol/L (3.5-5.1); Sodium 130 mmol/L (136-145); Thyroid Stimulating Hormone 0.23 uIU/mL (0.27-4.20)
--- NOTE | 2021-02-28 17:29 | CTR_ITS ---
PROCEDURE INFORMATION: Exam: CT Abdomen And Pelvis Without Contrast Exam date and time: 02/28/2021 5:29 PM Age: 60 years old Clinical indication: Abnormal findings; Abnormal lab test; Prior surgery; Surgery date: 6+ months; Surgery type: Cabg, hernia, hyst, bladder, and recent fem pop; Patient HX: Decreasing hgb, recent vascular surgery left fempop TECHNIQUE: Imaging protocol: Computed tomography of the abdomen and pelvis without contrast. Radiation optimization: All CT scans at this facility use at least one of these dose optimization techniques: automated exposure control; mA and/or kV adjustment per patient size (includes targeted exams where dose is matched to clinical indication); or iterative reconstruction. COMPARISON: CT angio chest PE protcl [id number] 02/28/2021 9:37 AM RADIATION DOSE METRICS: Total DLP (mGy-cm): 1652.45 FINDINGS: Lungs: Patchy scattered ground-glass lesions throughout the included lower lungs. Mild septal thickening changes. Pleural spaces: Small volume bilateral pleural effusions. Liver: Normal. No mass. Gallbladder and bile ducts: Cholelithiasis. No gallbladder wall thickening. Pancreas: Normal. No ductal dilation. Spleen: Normal. No splenomegaly. Adrenal glands: Normal. No mass. Kidneys and ureters: There is contrast retention in the kidneys. Negative for hydronephrosis. No perinephric inflammation. Stomach and bowel: Unremarkable. No obstruction. No mucosal thickening. Appendix: No evidence of appendicitis. Intraperitoneal space: Negative for hemoperitoneum. Negative for pneumoperitoneum. Retroperitoneal space: Negative for retroperitoneal hematoma. Vasculature: Extensive atherosclerotic wall plaques. Negative for abdominal aortic aneurysm. Lymph nodes: Unremarkable. No enlarged lymph nodes. Urinary bladder: Unremarkable as visualized. Reproductive: Hysterectomy. Bones/joints: Unremarkable. No acute fracture. Soft tissues: There is partial visualization of lobulated areas of low-attenuation fluid in the subcutaneous fat of the left groin. Lumbar paraspinal muscles are unremarkable. CT/CT abdomen pelvis wo con [id number] IMPRESSION: 1. Lobulated fluid collections in the left groin superficial soft tissues adjacent to the proximal anastomosis of the arterial bypass graft. Diagnostic considerations would primarily include postoperative seroma or small hematoma. 2. No intra-abdominal hemorrhage identified. 3. Contrast retention in the kidneys. Recommend correlation for contrast induced nephropathy. 4. Patchy ground-glass lesions in the lungs. 5. Imaging features can be seen with COVID-19 pneumonia, though are nonspecific and can occur with a variety of infectious and noninfectious processes. (Reference: Reg) REFERENCES: Reg Skelton, et al., Radiological Society of [place] Expert Consensus Statement on Reporting Chest CT Findings Related to COVID-19. Endorsed by the Society of Thoracic Radiology, the [place] [employer], and RSNA. Published October 25, 2019. Radiation Dose CTDIVOL = (mGy): DLP = 1652.45 (mGy-cm)
[2021-02-28 17:31] LABS: Ferritin 976 ng/mL (15-150)
[2021-02-28 17:35] LABS: Procalcitonin 23.99 ng/mL (0-0.5); Vitamin B12 770 pg/mL (232-1245)
[2021-02-28 18:03] LABS: Folate Level 19.7 ng/mL (4.8-37.3)
[2021-02-28 18:19] LABS: Bilirubin Urine Neg (Negative); Blood Urine Neg (Negative); Glucose Urine UA 4+ (Normal); Ketones Urine Negative (Negative); Leukocyte Esterase Urine Negative (Negative); Nitrate Urine Negative (Negative); Protein Urine Trace (Negative); Specific Gravity, Urine 1.015 (1.005-1.030); Urine Appearance Clear (CLEAR); Urine Color Yellow (Yellow); Urobilinogen Urine Norm (Negative); pH Urine 5 (5-7)
[2021-02-28 18:20] LABS: Add Urine Culture? No; Bacteria Urine TRACE /hpf; Mucus Urine 1+ /hpf
[2021-02-28 18:54] LABS: Troponin T (5th) Once 88 ng/L (0-10)
[2021-02-28] MEDS: pantoprazole DR 40 mg Tablet PO (21:14)
[2021-02-28 21:21] LABS: Glucose Point of Care 311 mg/dL (70-110)
--- NOTE | 2021-02-28 21:35 | PC.NURSE ---
Arrived from ED approximately 2019, AO x4, answers questions follows commands, c/o persistent SOB, 5L NC able to titrate down to 2L, supine 45 degrees call light within reach
[2021-02-28 21:37] LABS: Cortisol Random 17.97 ug/dL (2.47-19.5)
[2021-02-28 21:37] LABS: Hematocrit 26.3 % (37.0-47.0); Hemoglobin 8.3 g/dL (11.5-15.3)
[2021-03-01] VITALS (39 sets, daily range): BP systolic 79–140; BP diastolic 39–81; PULSE 63–91; RESP 13–37; TEMP 36.7–37.1; O2SAT 86–99
[2021-03-01] MEDS: piperacillin-tazobactam 3.375 GM in sodium chloride 0.9% (plus) 100 ML IV ×4 (01:27→22:39)
[2021-03-01] MEDS: morphine 4 mg/mL SDV 1 mL 2 MG IVP ×2 (01:37→23:48)
--- NOTE | 2021-03-01 02:37 | PC.NURSE ---
medications brought from home, reconciled and placed in pyxis
[2021-03-01] MEDS: vancomycin 1,250 MG/250 ML PIGGYBACK 250 MG IV ×2 (03:32→21:00)
[2021-03-01 04:43] LABS: Basophils % 0.3 %; Hematocrit 24.4 % (37.0-47.0); Hemoglobin 7.5 g/dL (11.5-15.3); Lymphocytes # 0.5 10^3/uL (0.8-4.8); Lymphocytes % 11.5 %; Mean Corpuscular HGB Conc 30.7 g/dL (30.0-36.0); Mean Corpuscular Hemoglobin 29.2 pg (28.0-34.0); Mean Corpuscular Volume 94.9 fL (81-99); Mean Platelet Volume 10.6 fL (7.4-10.4); Monocytes # 0.2 10^3/uL (0.2-0.9); Monocytes % 5.9 %; Neutrophils # 3.19 10^3/uL (1.8-7.7); Neutrophils % 81.5 %; Nucleated Red Blood Cells % 0 %; Platelet Count 264 10^3/cmm (130-400); Red Blood Count 2.57 10^6/uL (4.1-5.3); Red Cell Distribution Width 13.6 % (12.1-15.1); White Blood Count 3.9 10^3/uL (4.0-10.0)
[2021-03-01 05:07] LABS: Alanine Aminotransferase 35 U/L (0-33); Albumin Level 3.4 g/dL (3.5-5.2); Alkaline Phosphatase 83 IU/L (35-105); Anion Gap 17.3 (5-19); Aspartate Amino Transferase 69 U/L (0-32); Blood Urea Nitrogen 18 mg/dL (6-20); Carbon Dioxide 23 mmol/L (22-29); Chloride 99 mmol/L (98-107); Globulin 2.6 g/dL (1.3-4.6); Glomerular Filtration Rate 64.1 mL/min (90-130); Glucose 158 mg/dL (65-115); Osmolality Calculated 285 mOsm/kg (285-295); Potassium 4.3 mmol/L (3.5-5.1); Sodium 135 mmol/L (136-145); Total Bilirubin 0.3 mg/dL (0.15-1.2)
[2021-03-01] MEDS: remdesivir 100 MG in sodium chloride 0.9% (100 ml) 100 ML IV (05:29)
[2021-03-01] MEDS: dexamethasone 10 mg/mL INJ 6 MG IVP (06:29)
[2021-03-01 09:00] LABS: Glucose Point of Care 170 mg/dL (70-110)
[2021-03-01] MEDS: ondansetron 4 MG Tablet PO ×2 (09:01→23:54)
[2021-03-01] MEDS: atorvastatin 40 mg Tablet 20 MG PO (09:01)
[2021-03-01] MEDS: sertraline 100 mg Tablet PO (09:01)
--- NOTE | 2021-03-01 11:00 | PC.NURSE ---
Patient has been sitting in chair this shift. No shortness of breath noted and on 2L when she lays down in bed.
[2021-03-01 12:21] LABS: Glucose Point of Care 270 mg/dL (70-110)
[2021-03-01] MEDS: pantoprazole DR 40 mg Tablet PO ×2 (12:24→17:23)
--- NOTE | 2021-03-01 15:45 | PC.NURSE ---
Patient transferred to [facility] at 1530. Staff aware. All belongings are with patient
[2021-03-01 16:51] LABS: Quest SARS-CoV-2 RNA DETECTED (NOT DETECTED)
[2021-03-01 16:58] LABS: Glucose Point of Care 235 mg/dL (70-110)
--- NOTE | 2021-03-01 18:07 | PM.PN ---
Subjective Subjective: Interval history: Feels better. Has transition from requiring 4 to 6 L of oxygen down to around 2 L of oxygen. Blood pressures have been maintaining in the low 100s systolic. In talking with her, she says that she has longstanding issues with low blood pressures when they are checked in her right upper extremity. She follows with Dr. Escobar who is aware of this. She indicates blood pressures are usually okay on her left upper extremity but IV placement has limited utilization of that arm. She had left femoropopliteal done February 13. She has a slight bulge in the area where this was done in her left groin. She has some tenderness throughout the leg but no areas of significant bruising. She has not had any bleeding. CAT scan revealed either a post operative seroma or hematoma in the area of this knot. Patient reports that she is supposed to have her stitches out from this procedure this coming Wednesday at an appointment scheduled in [place]. Tolerating oral intake. Vitals/I&O/Wt Last Vital Signs Temp 98.4 F 03/01/21 16:00 Pulse 83 03/01/21 16:00 Resp 18 03/01/21 16:00 BP 102/54 03/01/21 16:27 Pulse Ox 91 03/01/21 16:00 03/01/21 03/01/21 03/01/21 06:59 14:59 22:59 Intake Total 450 / 3304.13 460 / 460 Output Total 200 / 650 300 / 300 Balance 250 / 2654.13 160 / 160 Weight last 48 hrs Weight 78.471 kg Weight 78.471 kg Physical Exam Narrative: EXAM NARRATIVE: Awake and alert, smiling, normocephalic, extraocular movements are intact, nasal cannula noted, moist membranes, neck is supple, scattered crackles, IV is in the left AC, regular rate and rhythm, abdomen is soft, nontender, left lower extremity guarding noted with tenderness to minimal palpation although seems almost anticipatory. She has stitches intact in the distal thigh medially and in the left groin. She has approximately 3-1/2 x 2-1/2 cm soft cystic feeling mass at the distal portion of the groin incision medially. There are no pulsations of this mass. It itself is not particularly tender. It feels slightly mobile though was not palpated aggressively by me. Data : 03/01/21 03:17 03/01/21 03:17 Other Labs: Laboratory Tests 02/28/21 02/28/21 02/28/21 07:30 10:55 16:31 Lactic Acid (Sepsis) 1.2 Iron 11 L TIBC 307 % Saturation 3.5 L Ferritin 976 Troponin T Gen 5 ng/L 191 H* C-Reactive Protein 120.6 H NT-Pro-B Natriuret Pep 2599 H Folate 19.7 Procalcitonin 23.99 H TSH 0.23 L Micro: Microbiology 02/28/21 17:14 MRSA Culture - Final Nose 02/28/21 07:28 Blood Culture - Preliminary Blood NEGATIVE TO DATE 02/28/21 07:30 Blood Culture - Preliminary Blood NEGATIVE TO DATE CT Abd/Pel: Radiologist's impression: CT/CT abdomen pelvis wo con [id number] IMPRESSION: 1. Lobulated fluid collections in the left groin superficial soft tissues adjacent to the proximal anastomosis of the arterial bypass graft. Diagnostic considerations would primarily include postoperative seroma or small hematoma. 2. No intra-abdominal hemorrhage identified. 3. Contrast retention in the kidneys. Recommend correlation for contrast induced nephropathy. 4. Patchy ground-glass lesions in the lungs. 5. Imaging features can be seen with COVID-19 pneumonia, though are nonspecific and can occur with a variety of infectious and noninfectious processes. (Reference: [place]) Echo: Radiologist's impression: CONCLUSIONS 1-Normal left ventricular cavity size. Normal left ventricular systolic function. No regional wall motion abnormalities. Left ventricular ejection fraction is estimated at 55 %. Normal diastolic function. 2-Severe aortic valve calcification. No aortic valve stenosis. No aortic valve regurgitation. 3-Moderately thickened mitral valve. Moderate mitral annular calcification. No mitral valve stenosis. Trace mitral valve regurgitation. 4-Mild tricuspid valve regurgitation. 5-There is no pericardial effusion. 6-Right atrial pressure is around 5 mm of mercury. 7-No significant change since the prior echocardiogram study of 12/05/2018. A&P Assessment and plan (1) Pneumonia due to COVID-19 virus: Remdesivir initiated 02/28 Dexamethasone initiated 02/28 Supplemental oxygen as needed, wean as tolerated Incentive spirometry Combivent every 6 hours Not a candidate for Actermra with concern for non-covid infection Procalcitonin 23 Initial lactic acid 6.1 > 1.2 Blood cultures from 02/28 no growth to date MRSA swab negative Bacterial antigenas and legionella pending CRP 120 > 125 D dimer 3.55 Status: Acute (2) Hypoxemia: See above Status: Acute (3) Hyperkalemia: 6.2 in ED. Resolved with treatment, received insulin and calcium gluconate Status: Acute (4) Hypotension: Intermittently hypotensive Received fluid in the emergency department, currently + 2300 ml Large doses of IV fluid are contraindicated secondary to her pneumonia, Covid, and possible progression to ARDS. Vancomycin and Zosyn started empirically on 02/28 She reports chronic issues with low blood pressure reading in right arm, which she indicates Dr Escobar is aware of; requesting we only check in left arm Normally on multiple medications for blood pressure control including amlodipine, coreg, hctz, lisinopril Status: Acute (5) Anemia: Iron deficiency with % saturation 3.5 Home medication list shows eliquis, pletal, aspirin and plavix Recent intervention to left fempop Protonix 40 mg twice daily Stool Hemoccult is positive, no gross blood CT imaging shows post operative seroma versus hemotoma left groin near bypass site - based on exam, suspect seroma more than hematoma presently with no bruising or tenderness at the immediate site Hemoglobin with stable fluctuating between 7.5-8.5 Continue eliquis and plavix only for now given risk of thrombotic event Monitor for worsening Will type and screen Iron replacement Status: Acute (6) Diabetes: Sliding scale insulin currently Off home metformin, glyburide, buydureon and pioglitazone Status: Chronic Qualifiers: Diabetes mellitus type: type 2 Diabetes mellitus ocean transportation intermediary insulin use: without assisted use Diabetes mellitus complication status: without complication Qualified Code(s): E11.9 - Type 2 diabetes mellitus without complications (7) ASHD (arteriosclerotic heart disease): History of coronary disease Continue patient's Plavix, statin Home amlodipine, coreg, hctz, lisinopril held due to hypotension Repeat troponin Echo done Hold further fluid with positive fluid balance Tele monitoring Status: Chronic (8) History of femoropopliteal bypass: Done February 13, [address] and due to be removed March 05 and an appointment with her doctor in [place] There is an associated seroma or hematoma as noted on CT imaging We will need to see if we can get in touch with the doctor that did this on Wednesday to let him or his clinic know of hospitalization and determine next steps Monitor for changes Status: Acute Additional A&P Information Multiple other medical problems as listed in past medical history On home sertraline, resume home Wellbutrin Resume lower dose of home anxiety medication As blood pressures have stabilized,she has not required pressor support and oxygebn requuirements are lessened, will transfer out of ICU On chronic eliquis which will serve for DVT prophylaxis presently On GI prophylaxis Disposition depends on clinical course Full code Attestations Medical Necessity Statement*: Requires ongoing inpatient stay for continued management of COVID-19 requiring oxygen therapy, monitoring of anemia in the setting of heme positive stools on multiple antiplatelet/anticoagulant medications, recent femoral-popliteal bypass with postoperative seroma versus hematoma as well as close monitoring of blood pressures in somebody normally on 4 medications, all of which were held and continuing to have intermittently low pressures into the 70s. Plans are as indicated. Coding Level of Care Code Acute Reel Cutter for [facility] Fwd Diagnoses Pneumonia due to COVID-19 virus U07.1; J12.82 Hypoxemia R09.02 Hyperkalemia E87.5 Hypotension I95.9 Anemia D64.9 Diabetes E11.9 Diabetes mellitus type: type 2 Diabetes mellitus assisted insulin use: without assisted use Diabetes mellitus complication status: without complication ASHD (arteriosclerotic heart disease) I25.10 History of femoropopliteal bypass Z98.890
--- NOTE | 2021-03-01 20:27 | USCV_ITS ---
Mi Barreto Age: 60 Gender: F : 1960 Exam Date: 03/01/2021 15:51 Ordering Phys: Khang Gallardo MD Technologist: Exam Location: [facility] [place] Indication: HX OF ME BP: 132 / 83 HR: 87 Rhythm: Sinus Technical Quality: Adequate MEASUREMENTS (Male / Female) Normal Values 2D ECHO LV Diastolic Diameter PLAX 4.9 cm 4.2 - 5.9 / 3.9 - 5.3 cm LV Systolic Diameter PLAX 3.7 cm IVS Diastolic Thickness 1.0 cm 0.6 - 1.0 / 0.6 - 0.9 cm IVS Systolic Thickness 1.4 cm LVPW Diastolic Thickness 0.9 cm 0.6 - 1.0 / 0.6 - 0.9 cm LVPW Systolic Thickness 1.6 cm LVOT Diameter 2.1 cm LV Ejection Fraction 2D Teich 47.0 % LV Ejection Fraction MOD 2C 36.8 % LV Ejection Fraction 2C AL 35.7 % LA Diameter 4.4 cm LA Width 4.2 cm LA Height 5.7 cm RA Width 3.7 cm RA Height 5.2 cm DOPPLER AV Peak Velocity 136.0 cm/s LVOT Peak Velocity 86.0 cm/s AV Area Cont Eq vti 2.3 cm squared AV Area Cont Eq pk 2.2 cm squared MV Area PHT 5.0 cm squared Mitral E to A Ratio 1.4 MV E' Velocity 51.5 cm/s Mitral E to MV E' Ratio 16.5 Mitral E to LV E' Lateral Ratio 15.7 Mitral E to LV E' Septal Ratio 17.6 TR Peak Velocity 224.3 cm/s TR Peak Gradient 20.1 mmHg TV Peak E Velocity 57.0 cm/s Right Atrial Pressure 3.0 mmHg Pulmonary Artery Systolic Pressu 23.1 mmHg PV Peak Velocity 79.0 cm/s FINDINGS Left Ventricle Normal left ventricular cavity size. Normal left ventricular systolic function. No regional wall motion abnormalities. Left ventricular ejection fraction is estimated at 55 %. Normal diastolic function. Right Ventricle The right ventricle is normal in size and function. Right Atrium The right atrium is normal in size. Left Atrium The left atrium is normal in size. Mitral Valve Moderately thickened mitral valve. Moderate mitral annular calcification. No mitral valve stenosis. Trace mitral valve regurgitation. Aortic Valve Severe aortic valve calcification. No aortic valve stenosis. No aortic valve regurgitation. Tricuspid Valve Mild tricuspid valve regurgitation. Pulmonic Valve Structurally normal pulmonic valve without significant stenosis. There is no pulmonic regurgitation. Pericardium Normal pericardium without effusion. Aorta Normal ascending aorta dimension. CONCLUSIONS 1-Normal left ventricular cavity size. Normal left ventricular systolic function. No regional wall motion abnormalities. Left ventricular ejection fraction is estimated at 55 %. Normal diastolic function. 2-Severe aortic valve calcification. No aortic valve stenosis. No aortic valve regurgitation. 3-Moderately thickened mitral valve. Moderate mitral annular calcification. No mitral valve stenosis. Trace mitral valve regurgitation. 4-Mild tricuspid valve regurgitation. 5-There is no pericardial effusion. 6-Right atrial pressure is around 5 mm of mercury. 7-No significant change since the prior echocardiogram study of 12/05/2018. Abisai Christy MD (Electronically Signed) Final Date: 01 March 2021 17:17 S
[2021-03-01 20:56] LABS: Glucose Point of Care 210 mg/dL (70-110)
[2021-03-01 22:00] LABS: C Reactive Protein 125.9 mg/L (0.0-4.9)
[2021-03-02] VITALS (11 sets, daily range): BP systolic 109–117; BP diastolic 69–78; PULSE 81–93; RESP 16–18; TEMP 36.6–37.2; O2SAT 91–97
--- NOTE | 2021-03-02 | USR_ITS ---
PROCEDURE INFORMATION: Exam: US Left Non-Vascular Joint or Other Extremity Structure Exam date and time: 03/02/2021 12:00 AM Age: 60 years old Clinical indication: Swelling; Upper leg; Left; Prior surgery; Surgery date: <1 month; Surgery type: Fem pop by pass; Additional info: Check fem pop by pass site TECHNIQUE: Imaging protocol: Left US joint or other nonvascular extremity structure or structures. Real-time ultrasound with image documentation. Limited study. Exam focused on the lower extremity in the region of clinical interest. COMPARISON: CT abdomen pelvis wo con [id number] 02/28/2021 6:06 PM FINDINGS: Soft tissues: The left groin shows a circumscribed fluid collection in the surgical site measuring 4.3 cm x 2.8 cm the posterior wall is thickened and there is internal septations present. The remainder of the collection appears clear without additional debris This finding was present on prior CT examination and now appears increased in size. (prior 22.6 mm x 32 mm) US/US soft tissue/extremity [id number] IMPRESSION: Circumscribed complex fluid collection in the left groin surgical area
[2021-03-02] MEDS: iron sucrose 200 MG in sodium chloride 0.9% (100 ml) 100 ML 220 MG IV (05:01)
[2021-03-02] MEDS: remdesivir 100 MG in sodium chloride 0.9% (100 ml) 100 ML IV (05:53)
[2021-03-02 06:47] LABS: Basophils % 0.2 %; Hematocrit 25.5 % (37.0-47.0); Hemoglobin 7.9 g/dL (11.5-15.3); Lymphocytes # 0.7 10^3/uL (0.8-4.8); Mean Corpuscular Hemoglobin 29.7 pg (28.0-34.0); Mean Corpuscular Volume 95.9 fL (81-99); Mean Platelet Volume 10.6 fL (7.4-10.4); Monocytes # 0.5 10^3/uL (0.2-0.9); Monocytes % 6.9 %; Neutrophils # 5.34 10^3/uL (1.8-7.7); Neutrophils % 81.3 %; Nucleated Red Blood Cells % 0.3 %; Platelet Count 342 10^3/cmm (130-400); Red Blood Count 2.66 10^6/uL (4.1-5.3); Red Cell Distribution Width 13.9 % (12.1-15.1); White Blood Count 6.6 10^3/uL (4.0-10.0)
[2021-03-02 06:51] LABS: Lactate (Lactic Acid level) 0.8 mmol/L (0.5-2.2)
[2021-03-02 07:02] LABS: Alanine Aminotransferase 47 U/L (0-33); Albumin Level 3.3 g/dL (3.5-5.2); Alkaline Phosphatase 68 IU/L (35-105); Anion Gap 14.3 (5-19); Aspartate Amino Transferase 50 U/L (0-32); Blood Urea Nitrogen 19 mg/dL (6-20); Calcium 8.1 mg/dL (8.5-10.5); Carbon Dioxide 23 mmol/L (22-29); Chloride 95 mmol/L (98-107); Globulin 2.7 g/dL (1.3-4.6); Glomerular Filtration Rate 56.7 mL/min (90-130); Glucose 124 mg/dL (65-115); Osmolality Calculated 270 mOsm/kg (285-295); Phosphorus 2.3 mg/dL (2.5-4.5); Potassium 4.3 mmol/L (3.5-5.1); Sodium 128 mmol/L (136-145); Total Bilirubin 0.4 mg/dL (0.15-1.2)
[2021-03-02 07:09] LABS: Procalcitonin 13.45 ng/mL (0-0.5)
[2021-03-02] MEDS: piperacillin-tazobactam 3.375 GM in sodium chloride 0.9% (plus) 100 ML IV ×3 (07:14→22:36)
[2021-03-02 07:52] LABS: Glucose Point of Care 128 mg/dL (70-110)
[2021-03-02] MEDS: ondansetron 4 MG Tablet PO ×2 (07:53→21:19)
[2021-03-02] MEDS: dexamethasone 4 mg/mL INJ 6 MG IVP (07:54)
[2021-03-02] MEDS: sertraline 100 mg Tablet PO (07:54)
[2021-03-02] MEDS: buPROPion XL (24 HR) 150 mg Tablet PO (07:54)
[2021-03-02] MEDS: ezetimibe 10 mg Tablet PO (07:54)
[2021-03-02] MEDS: pantoprazole DR 40 mg Tablet PO ×2 (07:54→17:20)
[2021-03-02] MEDS: atorvastatin 40 mg Tablet 20 MG PO (07:55)
[2021-03-02] MEDS: morphine 4 mg/mL SDV 1 mL 2 MG IVP ×2 (08:00→21:13)
[2021-03-02 10:44] LABS: Troponin T (5th) Once 58 ng/L (0-10)
[2021-03-02 10:45] LABS: C Reactive Protein 47.1 mg/L (0.0-4.9)
[2021-03-02 11:20] LABS: Glucose Point of Care 268 mg/dL (70-110)
[2021-03-02 14:36] LABS: Hematocrit 25.6 % (37.0-47.0); Hemoglobin 8.1 g/dL (11.5-15.3)
[2021-03-02] MEDS: aspirin 81 mg EC Tablet PO (14:40)
[2021-03-02 14:52] LABS: Vancomycin Trough 12.7 ug/mL (10-15)
--- NOTE | 2021-03-02 16:36 | P.PN_ITS ---
Subjective Subjective: Interval history: Currently patient was examined, she sitting up into a chair, she is on 2 L nasal cannula, has some shortness of breath with exertion, cough, no fevers, no chills, no nausea, no vomiting, denies any bloody or black stools Vitals/I&O/Wt Last Vital Signs Temp 98.1 F 03/02/21 12:00 Pulse 81 03/02/21 12:00 Resp 16 03/02/21 12:00 BP 115/74 03/02/21 12:00 Pulse Ox 95 03/02/21 12:00 03/02/21 03/02/21 03/02/21 06:59 14:59 22:59 Intake Total 310 / 1240 460 / 460 Output Total 400 / 1200 Balance -90 / 40 460 / 460 Weight last 48 hrs Weight 89.63 kg Weight 87.997 kg Weight 78.471 kg Physical Exam Const: COMMON NORMALS: no acute distress and patient oriented x3 Resp: COMMON NORMALS: normal respiratory effort, No retractions, No use of accessory muscles and clear to auscultation bilaterally AUSCULTATION: clear to auscultation bilaterally Cardio: COMMON NORMALS: regular rate, regular rhythm, S1 normal heart sound present and S2 normal heart sound present RATE: regular rate RHYTHM: regular rhythm HEART SOUNDS: S1 normal heart sound present and S2 normal heart sound present GI: COMMON NORMALS: Normal to inspection, nondistended, normoactive bowel sounds present, Soft to palpation, non-tender and No hepatosplenomegaly present PALPATION: Yes Soft to palpation and Yes No hepatosplenomegaly present Extremity: COMMON NORMALS: no pedal edema NARRATIVE EXTREMITY EXAM: Left lower extremity, femoropopliteal bypass site, sutures are clean and dry, but has a fluctuant mass at bypass site, Neuro: COMMON NORMALS: patient oriented x3 Psych: COMMON NORMALS: mental status grossly normal Data : 03/02/21 14:21 03/02/21 06:18 Micro: Microbiology 03/01/21 19:35 Gram Stain - Final Sputum - Expectorated Sputum 03/01/21 18:47 Bacterial Antigens - Final Urine,Voided 03/01/21 18:47 Occult Blood (FIT) - Final Stool Routine Collection A&P Assessment and plan (1) Pneumonia due to COVID-19 virus: Acute respiratory failure secondary COVID-19 pneumonia Remdesivir initiated 02/28 Dexamethasone initiated 02/28 Supplemental oxygen as needed, wean as tolerated Incentive spirometry Combivent every 6 hours Vitamin C, zinc, vitamin D Continue pulmonary toilet, flutter valve, ambulation Not a candidate for Actermra with concern for non-covid infection Procalcitonin 23 Initial lactic acid 6.1 > 1.2 Blood cultures from 02/28 no growth to date MRSA swab negative Bacterial antigenas and legionella pending CRP 120 > 125 D dimer 3.55 Full code Protonix for GI prophylaxis Aspirin, SCDs for DVT prophylaxis, anticoagulation currently contraindicated g iven anemia, concerns for bleeding from femoropopliteal bypass site Status: Acute (2) Hypoxemia: See above Status: Acute (3) Hyperkalemia: 6.2 in ED. Resolved with treatment, received insulin and calcium gluconate Status: Acute (4) Hypotension: Intermittently hypotensive Received fluid in the emergency department, currently + 2300 ml Large doses of IV fluid are contraindicated secondary to her pneumonia, Covid, and possible progression to ARDS. Vancomycin and Zosyn started empirically on 02/28 She reports chronic issues with low blood pressure reading in right arm, which she indicates Dr Escobar is aware of; requesting we only check in left arm Normally on multiple medications for blood pressure control including amlodipine, coreg, hctz, lisinopril Status: Acute (5) Anemia: Iron deficiency with % saturation 3.5 Home medication list shows eliquis, pletal, aspirin and plavix Recent intervention to left fempop Protonix 40 mg twice daily Stool Hemoccult is positive, no gross blood CT imaging shows post operative seroma versus hemotoma left groin near bypass site - based on exam, suspect seroma more than hematoma presently with no bruising or tenderness at the immediate site Will do ultrasound of fluctuant mass Continue broad-spectrum antibiotics vancomycin, Zosyn for possible abscess or infection Hemoglobin with stable fluctuating between 7.5-8.5 Hold Eliquis, Plavix Monitor for worsening Monitor hemoglobins every 6 hours Iron replacement Status: Acute (6) Diabetes: Sliding scale insulin currently Off home metformin, glyburide, buydureon and pioglitazone Status: Chronic (7) ASHD (arteriosclerotic heart disease): History of coronary disease Hold Plavix Continue statin Home amlodipine, coreg, hctz, lisinopril held due to hypotension Repeat troponin Echocardiogram shows an EF of 55%, normal diastolic function Hold further fluid with positive fluid balance Tele monitoring Status: Chronic (8) History of femoropopliteal bypass: Done February 13, [address] and due to be removed March 05 and an appointment with her doctor in [place] There is an associated seroma or hematoma as noted on CT imaging We will need to see if we can get in touch with the doctor that did this on Wednesday to let him or his clinic know of hospitalization and determine next steps Monitor for changes Status: Acute Additional A&P Information Multiple other medical problems as listed in past medical history On home sertraline, resume home Wellbutrin Resume lower dose of home anxiety medication Attestations Medical Necessity Statement*: Patient requires hospitalization for acute respiratory failure sec to COVID-19, anemia, seroma at left femoropopliteal bypass site Coding Level of Care 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
[2021-03-02] MEDS: sucralfate 1 gm/10 mL Oral Liq UDC PO ×2 (17:20→20:23)
[2021-03-02] MEDS: ascorbic acid 500 mg Tablet PO (17:20)
[2021-03-02 17:21] LABS: Glucose Point of Care 306 mg/dL (70-110)
[2021-03-02] MEDS: vancomycin 1,250 MG/250 ML PIGGYBACK 250 MG IV (18:26)
[2021-03-02 20:56] LABS: Hematocrit 23.6 % (37.0-47.0); Hemoglobin 7.4 g/dL (11.5-15.3)
[2021-03-02 21:04] LABS: Glucose Point of Care 247 mg/dL (70-110)
[2021-03-03] VITALS (16 sets, daily range): BP systolic 114–120; BP diastolic 66–81; PULSE 76–130; RESP 16–20; TEMP 36.4–36.8; O2SAT 91–97
[2021-03-03 02:08] LABS: Hematocrit 25.1 % (37.0-47.0); Hemoglobin 7.8 g/dL (11.5-15.3)
[2021-03-03] MEDS: remdesivir 100 MG in sodium chloride 0.9% (100 ml) 100 ML IV (05:38)
[2021-03-03] MEDS: ondansetron 4 MG Tablet PO ×2 (06:29→21:02)
[2021-03-03 06:30] LABS: Glucose Point of Care 181 mg/dL (70-110)
[2021-03-03] MEDS: piperacillin-tazobactam 3.375 GM in sodium chloride 0.9% (plus) 100 ML IV (06:52)
[2021-03-03 07:00] LABS: Basophils % 0.2 %; Hematocrit 25.5 % (37.0-47.0); Hemoglobin 7.8 g/dL (11.5-15.3); Lymphocytes # 0.7 10^3/uL (0.8-4.8); Lymphocytes % 11.2 %; Mean Corpuscular HGB Conc 30.6 g/dL (30.0-36.0); Mean Corpuscular Hemoglobin 29.5 pg (28.0-34.0); Mean Corpuscular Volume 96.6 fL (81-99); Mean Platelet Volume 10.7 fL (7.4-10.4); Monocytes # 0.6 10^3/uL (0.2-0.9); Monocytes % 8.4 %; Neutrophils # 5.25 10^3/uL (1.8-7.7); Neutrophils % 79.7 %; Nucleated Red Blood Cells % 0.6 %; Platelet Count 384 10^3/cmm (130-400); Red Blood Count 2.64 10^6/uL (4.1-5.3); Red Cell Distribution Width 14.1 % (12.1-15.1); White Blood Count 6.6 10^3/uL (4.0-10.0)
--- NOTE | 2021-03-03 07:00 | XR_ITS ---
WS: [id number] Portable AP upright chest, 03/03/2021 Clinical Data: sob Comparison: Portable chest, 02/28/2021. Findings: The bilateral pulmonary opacities remain the same. No nodules, masses or effusions are seen . The heart is enlarged. Midline sternotomy sutures are present. There is an anterior cervical disc f usion. Monitor leads are on the chest wall. XR/XR chest 1V portable [id number] Impression: No change in bilateral pulmonary opacities and cardiomegaly.
[2021-03-03 07:18] LABS: INR 1.23 (0.8-1.2)
[2021-03-03 07:19] LABS: Partial Thromboplastin Time 40.7 SECONDS (23.9-36.7)
[2021-03-03 07:34] LABS: Alanine Aminotransferase 41 U/L (0-33); Albumin Level 3.4 g/dL (3.5-5.2); Alkaline Phosphatase 79 IU/L (35-105); Anion Gap 15.7 (5-19); Aspartate Amino Transferase 31 U/L (0-32); Blood Urea Nitrogen 22 mg/dL (6-20); C Reactive Protein 62.5 mg/L (0.0-4.9); Calcium 8.4 mg/dL (8.5-10.5); Carbon Dioxide 23 mmol/L (22-29); Chloride 101 mmol/L (98-107); Globulin 2.7 g/dL (1.3-4.6); Glomerular Filtration Rate 64.1 mL/min (90-130); Glucose 163 mg/dL (65-115); Magnesium 2.1 mg/dL (1.7-2.3); Osmolality Calculated 287 mOsm/kg (285-295); Phosphorus 2.4 mg/dL (2.5-4.5); Potassium 4.7 mmol/L (3.5-5.1); Sodium 135 mmol/L (136-145); Total Bilirubin 0.7 mg/dL (0.15-1.2); Total Protein 6.1 g/dL (6.6-8.7)
[2021-03-03 07:41] LABS: NT Pro B Type Natriuretic Pept 25051 pg/mL (0-125); Procalcitonin 4.63 ng/mL (0-0.5)
[2021-03-03] MEDS: sucralfate 1 gm/10 mL Oral Liq UDC PO ×4 (07:49→20:54)
[2021-03-03] MEDS: morphine 4 mg/mL SDV 1 mL 2 MG IVP ×2 (07:55→20:54)
[2021-03-03] MEDS: dexamethasone 4 mg/mL INJ 6 MG IVP (08:00)
[2021-03-03] MEDS: buPROPion XL (24 HR) 150 mg Tablet PO (08:02)
[2021-03-03] MEDS: cholecalciferol (vitamin D3) 1,000 unit Tablet 1000 UNIT PO (08:02)
[2021-03-03] MEDS: zinc gluconate 50 mg Tablet PO (08:02)
[2021-03-03] MEDS: atorvastatin 40 mg Tablet 20 MG PO (08:02)
[2021-03-03] MEDS: ezetimibe 10 mg Tablet PO (08:02)
[2021-03-03] MEDS: ascorbic acid 500 mg Tablet PO ×2 (08:02→17:31)
[2021-03-03] MEDS: pantoprazole DR 40 mg Tablet PO ×2 (08:02→17:31)
[2021-03-03] MEDS: sertraline 100 mg Tablet PO (08:02)
[2021-03-03 08:30] LABS: Hematocrit 25.1 % (37.0-47.0); Hemoglobin 7.9 g/dL (11.5-15.3)
[2021-03-03] MEDS: FUROsemide 10 mg/mL SDV 4mL 40 MG IVP (10:40)
[2021-03-03 11:07] LABS: Glucose Point of Care 251 mg/dL (70-110)
--- NOTE | 2021-03-03 11:18 | PC.SOCIAL ---
IMM Update pg 2 patient is covid+ call placed to pt's rm and updated on IMM. Pt. verbalized understanding.
--- NOTE | 2021-03-03 12:08 | P.PN_ITS ---
Subjective Subjective: Interval history: Patient was seen this morning, she is on 1 to 2 L, she tells me that she still having some coughing, no fevers, mild shortness of breath, but overall doing better, no groin pain, no lightheadedness, no dizziness, no bloody or black stools Vitals/I&O/Wt Last Vital Signs Temp 98.0 F 03/03/21 11:32 Pulse 79 03/03/21 11:32 Resp 18 03/03/21 11:32 BP 120/66 03/03/21 11:32 Pulse Ox 93 03/03/21 11:32 03/02/21 03/03/21 03/03/21 22:59 06:59 14:59 Intake Total 590 / 1050 200 / 1250 480 / 480 Output Total 400 / 400 0 / 400 Balance 190 / 650 200 / 850 480 / 480 Weight last 48 hrs Weight 86.001 kg Weight 89.63 kg Weight 87.997 kg Physical Exam Const: COMMON NORMALS: no acute distress and patient oriented x3 Resp: COMMON NORMALS: normal respiratory effort, No retractions, No use of accessory muscles and clear to auscultation bilaterally AUSCULTATION: clear to auscultation bilaterally Cardio: COMMON NORMALS: regular rate, regular rhythm, S1 normal heart sound present and S2 normal heart sound present RATE: regular rate RHYTHM: regular rhythm HEART SOUNDS: S1 normal heart sound present and S2 normal heart sound present GI: COMMON NORMALS: Normal to inspection, nondistended, normoactive bowel sounds present, Soft to palpation, non-tender and No hepatosplenomegaly present PALPATION: Yes Soft to palpation and Yes No hepatosplenomegaly present Extremity: COMMON NORMALS: no pedal edema NARRATIVE EXTREMITY EXAM: Left lo wer extremity, femoropopliteal bypass site, sutures are clean and dry, but has a fluctuant mass near bypass site, Neuro: COMMON NORMALS: patient oriented x3 Psych: COMMON NORMALS: mental status grossly normal Data : 03/03/21 08:16 03/03/21 06:23 Micro: Microbiology 03/01/21 19:35 Gram Stain - Final Sputum - Expectorated Sputum Sputum Culture - Preliminary 03/01/21 18:47 Bacterial Antigens - Final Urine,Voided A&P Assessment and plan (1) Pneumonia due to COVID-19 virus: Acute respiratory failure secondary COVID-19 pneumonia Remdesivir initiated 02/28 Dexamethasone initiated 02/28 Supplemental oxygen as needed, wean as tolerated Incentive spirometry Combivent every 6 hours Vitamin C, zinc, vitamin D Continue pulmonary toilet, flutter valve, ambulation Not a candidate for Actermra with concern for non-covid infection Blood cultures from 02/28 no growth to date MRSA swab negative Bacterial antigenas and legionella pending CRP 120 > 125 D dimer 3.55 Full code Protonix for GI prophylaxis Aspirin, SCDs for DVT prophylaxis, anticoagulation currently contraindicated given anemia, concerns for bleeding from femoropopliteal bypass site Plan for today continue remdesivir, continue Decadron, continue to monitor cl inical status, stop vancomycin and Zosyn Status: Acute (2) Hypoxemia: See above Status: Acute (3) Hyperkalemia: 6.2 in ED. Resolved with treatment, received insulin and calcium gluconate Status: Acute (4) Hypotension: Intermittently hypotensive Received fluid in the emergency department, currently + 2300 ml Large doses of IV fluid are contraindicated secondary to her pneumonia, Covid, and possible progression to ARDS. Vancomycin and Zosyn started empirically on 02/28, discontinued today She reports chronic issues with low blood pressure reading in right arm, which she indicates Dr Escobar is aware of; requesting we only check in left arm Normally on multiple medications for blood pressure control including amlodipine, coreg, hctz, lisinopril Status: Acute (5) Anemia: Iron deficiency with % saturation 3.5 Home medication list shows eliquis, pletal, aspirin and plavix Recent intervention to left fempop Protonix 40 mg twice daily Stool Hemoccult is positive, no gross blood CT imaging shows post operative seroma versus hemotoma left groin near bypass site - based on exam, suspect seroma more than hematoma presently with no bruising or tenderness at the immediate site Ultrasound shows circumscribed complex fluid collection in the left groin gotti rgical area Stop antibiotic therapy, de-escalate to doxycycline Hemoglobin with stable fluctuating between 7.5-8.5 Hold Eliquis, Plavix Monitor for worsening Monitor hemoglobins every 6 hours Iron replacement Status: Acute (6) Diabetes: Sliding scale insulin currently Off home metformin, glyburide, buydureon and pioglitazone Status: Chronic (7) ASHD (arteriosclerotic heart disease): History of coronary disease Hold Plavix Continue statin Home amlodipine, coreg, hctz, lisinopril held due to hypotension Repeat troponin Echocardiogram shows an EF of 55%, normal diastolic function Hold further fluid with positive fluid balance Tele monitoring Status: Chronic (8) History of femoropopliteal bypass: Done February 13, [address] and due to be removed March 05 and an appointment with her doctor in [place] There is an associated seroma or hematoma as noted on CT imaging Continue doxycycline for coverage for possible abscess Monitor for changes Status: Acute Additional A&P Information Multiple other medical problems as listed in past medical history On home sertraline, resume home Wellbutrin Resume lower dose of home anxiety medication Attestations Medical Necessity Statement*: Patient requires hospitalization for COVID-19 pneumonia Coding Level of Care 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
[2021-03-03] MEDS: aspirin 81 mg EC Tablet PO (14:19)
[2021-03-03 14:26] LABS: Hematocrit 26.8 % (37.0-47.0); Hemoglobin 8.4 g/dL (11.5-15.3)
[2021-03-03 16:54] LABS: Glucose Point of Care 243 mg/dL (70-110)
[2021-03-03] MEDS: doxycycline 100 mg Tablet PO (17:31)
[2021-03-03 20:48] LABS: Hematocrit 24.3 % (37.0-47.0); Hemoglobin 7.8 g/dL (11.5-15.3)
[2021-03-03 21:10] LABS: Glucose Point of Care 183 mg/dL (70-110)
[2021-03-04] VITALS (8 sets, daily range): BP systolic 121–144; BP diastolic 77–94; PULSE 81–92; RESP 17–20; TEMP 36.3–36.9; O2SAT 85–97
[2021-03-04 03:10] LABS: Basophils % 0.2 %; Hemoglobin 7.7 g/dL (11.5-15.3); Lymphocytes # 0.7 10^3/uL (0.8-4.8); Lymphocytes % 13.1 %; Mean Corpuscular HGB Conc 30.8 g/dL (30.0-36.0); Mean Corpuscular Hemoglobin 29.4 pg (28.0-34.0); Mean Corpuscular Volume 95.4 fL (81-99); Mean Platelet Volume 10.7 fL (7.4-10.4); Monocytes # 0.6 10^3/uL (0.2-0.9); Monocytes % 10.5 %; Neutrophils % 75.5 %; Nucleated Red Blood Cells % 0.7 %; Platelet Count 409 10^3/cmm (130-400); Red Blood Count 2.62 10^6/uL (4.1-5.3); Red Cell Distribution Width 13.8 % (12.1-15.1); White Blood Count 5.4 10^3/uL (4.0-10.0)
[2021-03-04 03:27] LABS: INR 1.19 (0.8-1.2)
[2021-03-04 03:34] LABS: Alanine Aminotransferase 33 U/L (0-33); Albumin Level 3.5 g/dL (3.5-5.2); Alkaline Phosphatase 78 IU/L (35-105); Anion Gap 14.9 (5-19); Aspartate Amino Transferase 24 U/L (0-32); Blood Urea Nitrogen 25 mg/dL (6-20); C Reactive Protein 48.6 mg/L (0.0-4.9); Calcium 8.4 mg/dL (8.5-10.5); Carbon Dioxide 25 mmol/L (22-29); Chloride 99 mmol/L (98-107); Globulin 2.6 g/dL (1.3-4.6); Glomerular Filtration Rate 56.7 mL/min (90-130); Glucose 90 mg/dL (65-115); Osmolality Calculated 284 mOsm/kg (285-295); Phosphorus 2.3 mg/dL (2.5-4.5); Potassium 3.9 mmol/L (3.5-5.1); Sodium 135 mmol/L (136-145); Total Bilirubin 0.7 mg/dL (0.15-1.2); Total Protein 6.1 g/dL (6.6-8.7)
[2021-03-04 03:36] LABS: Procalcitonin 2.33 ng/mL (0-0.5)
[2021-03-04 03:38] LABS: Slide Review Slide Review Perform
[2021-03-04 06:07] LABS: Glucose Point of Care 108 mg/dL (70-110)
[2021-03-04] MEDS: remdesivir 100 MG in sodium chloride 0.9% (100 ml) 100 ML IV (06:14)
[2021-03-04] MEDS: sucralfate 1 gm/10 mL Oral Liq UDC PO (06:14)
[2021-03-04] MEDS: ondansetron 4 MG Tablet PO ×2 (06:15→15:55)
[2021-03-04] MEDS: doxycycline 100 mg Tablet PO (08:31)
[2021-03-04] MEDS: buPROPion XL (24 HR) 150 mg Tablet PO (08:31)
[2021-03-04] MEDS: sertraline 100 mg Tablet PO (08:31)
[2021-03-04] MEDS: ezetimibe 10 mg Tablet PO (08:31)
[2021-03-04] MEDS: cholecalciferol (vitamin D3) 1,000 unit Tablet 1000 UNIT PO (08:31)
[2021-03-04] MEDS: zinc gluconate 50 mg Tablet PO (08:32)
[2021-03-04] MEDS: atorvastatin 40 mg Tablet 20 MG PO (08:32)
[2021-03-04] MEDS: pantoprazole DR 40 mg Tablet PO (08:32)
[2021-03-04] MEDS: ascorbic acid 500 mg Tablet PO (08:32)
[2021-03-04] MEDS: dexamethasone 4 mg/mL INJ 6 MG IVP (08:32)
[2021-03-04 09:09] LABS: Hematocrit 26.6 % (37.0-47.0); Hemoglobin 8.4 g/dL (11.5-15.3)
--- NOTE | 2021-03-04 10:42 | P.DS_ITS ---
Discharge Providers Date of Admission: 02/28/21 13:03 Date of Discharge: March 04, 2021 Attending Provider at Admission: Khang Gallardo MD Attending Provider at Discharge: Kevin Wolfe MD Primary Care Provider: Neto Elizabeth MD Diagnoses at Discharge Discharge Diagnosis (1) Pneumonia due to COVID-19 virus: Status: Acute (2) Hypoxemia: Status: Acute (3) Hyperkalemia: Status: Acute (4) Hypotension: Status: Acute (5) Anemia: Status: Acute (6) Diabetes: Status: Chronic (7) ASHD (arteriosclerotic heart disease): Status: Chronic (8) History of femoropopliteal bypass: Status: Acute Reason for Visit Reason for Visit: DIFF BREATHING Hospital Course Hospital Course This is a 60-year-old female with a past medical history of type 2 diabetes [id number]-[id number], hyperlipidemia, hypertension, peripheral arterial disease recent history of femoropopliteal bypass, carotid artery stenosis, CAD, history of degenerative disc disease who presents to [facility] due to cough and shortness of breath Patient presented to [facility] for acute respiratory failure secondary to COVID-19 pneumonia, received remdesivir 5 days, Decadron, broad- spectrum antibiotic therapy, and clinically monitored, intermittent diuresis. Patient clinically improved, oxygen requirements decreased, shortness of breath improved. On discharge she was discharged with Advair, albuterol, vitamin C, vitamin D, zinc, doxycycline, with close follow-up with her primary care provider in a week, follow-up with pulmonary in 1 month, discharged on 1 L nasal cannula. Patient was advised to follow-up with primary care provider about COVID-19 vaccination, continue to self isolate for at least 21 days from symptom onset, facemask, handwashing, etc. In terms of her hypercoagulability prophylaxis after COVID-19, she was mobile during hospitalization, however she has had a recent femoropopliteal bypass for which she is on aspirin, Plavix, Eliquis. However given her anemia as below, Plavix and Eliquis have been temporarily discontinued. Patient was maintained on aspirin during hospitalization, hemoglobin remained stable. After discussion of the risks and benefits of anticoagulation for hypercoagulability prophylaxis, given her anemia as below, after shared decision making, decision was made with the patient to not pursue anticoagulation for now at least. Patient was advised to continue to hold Plavix and Eliquis until she follows up with a primary care provider and vascular surgeon. Patient was advised to monitor for signs of DVT or pulmonary emboli, if so go to the emergency room. Advised to continue to be mobile, continue aspirin. Patient developed anemia during her hospitalization, iron deficiency anemia, she was on dual antiplatelet therapy including Eliquis with a recent left femoropopliteal bypass. Her Hemoccult was positive, no bloody or black stools, her anticoagulation was held during her hospitalization. She did not require any transfusion, however her hemoglobin did get as low as 7.4. On discharge her hemoglobin is 8.4, hemodynamically stable, discharged on aspirin 81 mg as below, Protonix 40 twice daily, with Carafate. Patient is to follow-up with primary care provider in 1 week for recheck hemoglobin. Follow-up with general surgery in 1 month for consideration of EGD and colonoscopy. Patient was advised if she were to have develop bloody or black stools, lightheadedness or dizziness go to emergency room. She was also found to have a postoperative seroma or hematoma on CT and ultrasound imaging at femoropopliteal bypass graft site, no radiographic or clinical evidence of leak, or pseudoaneurysm or abscess. Nonetheless she was managed with broad-spectrum antibiotic therapy, de-escalated to doxycycline, discharged on doxycycline on discharge. I favored clinically as seroma as with intermittent diuresis for her COVID-19 as above the seroma would resolve. Patient is to follow-up with her vascular surgeon at [facility], her sutures are also to be removed, March 05. Physical Exam Const: COMMON NORMALS: no acute distress and patient oriented x3 Resp: COMMON NORMALS: normal respiratory effort, No retractions, No use of accessory muscles and clear to auscultation bilaterally AUSCULTATION: clear to auscultation bilaterally Cardio: COMMON NORMALS: regular rate, regular rhythm, S1 normal heart sound present and S2 normal heart sound present RATE: regular rate RHYTHM: regular rhythm HEART SOUNDS: S1 normal heart sound present and S2 normal heart sound present GI: COMMON NORMALS: Normal to inspection, nondistended, normoactive bowel sounds present, Soft to palpation and non-tender PALPATION: Yes Soft to palpation Extremity: COMMON NORMALS: no pedal edema Neuro: COMMON NORMALS: patient oriented x3 Psych: COMMON NORMALS: mental status grossly normal Discharge Data Data Completed and Pending: Completed Studies During Hospitalization Category Date Time Status CT abdomen pelvis wo con [id number] Rout ine Cat Scan 02/28/21 17:[address] angio chest PE protcl [id number] Stat Cat Scan 02/28/21 08:19 Completed XR chest 1V libra ble [id number] Routine Exams 03/03/21 07:00 Completed XR chest 1V libra ble [id number] Stat Exams 02/28/21 06:26 Completed CV. echo complete * [id number] Routine Ultrasound 03/01/21 20:27 Completed US soft tissue/ex tremity [id number] Rout ine Ultrasound 03/02/21 Completed Pending at discharge Category Date Time Status Blood Culture Sta t Lab 02/28/21 07:28 Results C Reactive Protei n AM LABS Lab 03/05/21 04:00 Ordered Complete Blood Co unt w/Auto AM LABS Lab 03/05/21 04:00 Ordered Comprehensive Met abolic Panel AM LA BS Lab 03/05/21 04:00 Ordered Hemoglobin and He matocrit Q6H Lab 03/04/21 14:13 Ordered Hemoglobin and He matocrit Q6H Lab 03/04/21 20:13 Ordered Legionella Antibo dy Routine Lab 02/28/21 16:31 Received Magnesium AM LABS Lab 03/05/21 04:00 Ordered NT Pro B Type Genie riuretic Pept QAM Lab 03/05/21 06:00 Ordered Phosphorus AM LAB S Lab 03/05/21 04:00 Ordered Procalcitonin AM LABS Lab 03/05/21 04:00 Ordered Prothrombin Time INR AM LABS Lab 03/05/21 04:00 Ordered Sputum Culture an d Gram Stain Stat Lab 03/01/21 19:35 Results Labs from last 24 hours 03/04/21 03/04/21 03/04/21 08:45 05:57 02:30 WBC RBC Hgb 8.4 L Hct 26.6 L MCV MCH MCHC RDW Plt Count MPV Neut % (Auto) Lymph % (Auto) Stephenson % (Auto) Eos % (Auto) Baso % (Auto) Neut # (Auto) Lymph # (Auto) Stephenson # (Auto) Eos # (Auto) Baso # (Auto) Nucleated RBC % (a uto) Nucleated RBCs # PT INR Sodium Potassium Chloride Carbon Dioxide Anion Gap BUN Creatinine GFR Calculation Glucose POC Glucose 108 Calculated Osmolal ity Calcium Phosphorus Magnesium Total Bilirubin AST ALT Alkaline Phosphata se C-Reactive Protein NT-Pro-B Natriuret Pep 57647 H Total Protein Albumin Globulin Procalcitonin 2.33 H 03/04/21 03/04/21 03/04/21 02:30 02:30 02:30 WBC 5.4 RBC 2.62 L Hgb 7.7 L Hct 25.0 L MCV 95.4 MCH 29.4 MCHC 30.8 RDW 13.8 Plt Count 409 H MPV 10.7 H Neut % (Auto) 75.5 Lymph % (Auto) 13.1 Stephenson % (Auto) 10.5 Eos % (Auto) 0.0 Baso % (Auto) 0.2 Neut # (Auto) 4.10 Lymph # (Auto) 0.7 L Stephenson # (Auto) 0.6 Eos # (Auto) 0.0 Baso # (Auto) 0.0 Nucleated RBC % (a uto) 0.7 Nucleated RBCs # 0.0 PT 15.40 H INR 1.19 Sodium 135 L Potassium 3.9 Chloride 99 Carbon Dioxide 25 Anion Gap 14.9 BUN 25 H Creatinine 1.0 H GFR Calculation 56.7 L Glucose 90 POC Glucose Calculated Osmolal ity 284 L Calcium 8.4 L Phosphorus 2.3 L Magnesium 2.0 Total Bilirubin 0.7 AST 24 ALT 33 Alkaline Phosphata se 78 C-Reactive Protein 48.6 H NT-Pro-B Natriuret Pep Total Protein 6.1 L Albumin 3.5 Globulin 2.6 Procalcitonin 03/03/21 03/03/21 03/03/21 20:54 20:39 16:45 WBC RBC Hgb 7.8 L Hct 24.3 L MCV MCH MCHC RDW Plt Count MPV Neut % (Auto) Lymph % (Auto) Stephenson % (Auto) Eos % (Auto) Baso % (Auto) Neut # (Auto) Lymph # (Auto) Stephenson # (Auto) Eos # (Auto) Baso # (Auto) Nucleated RBC % (a uto) Nucleated RBCs # PT INR Sodium Potassium Chloride Carbon Dioxide Anion Gap BUN Creatinine GFR Calculation Glucose POC Glucose 183 H 243 H Calculated Osmolal ity Calcium Phosphorus Magnesium Total Bilirubin AST ALT Alkaline Phosphata se C-Reactive Protein NT-Pro-B Natriuret Pep Total Protein Albumin Globulin Procalcitonin 03/03/21 03/03/21 14:18 11:03 WBC RBC Hgb 8.4 L Hct 26.8 L MCV MCH MCHC RDW Plt Count MPV Neut % (Auto) Lymph % (Auto) Stephenson % (Auto) Eos % (Auto) Baso % (Auto) Neut # (Auto) Lymph # (Auto) Stephenson # (Auto) Eos # (Auto) Baso # (Auto) Nucleated RBC % (a uto) Nucleated RBCs # PT INR Sodium Potassium Chloride Carbon Dioxide Anion Gap BUN Creatinine GFR Calculation Glucose POC Glucose 251 H Calculated Osmolal ity Calcium Phosphorus Magnesium Total Bilirubin AST ALT Alkaline Phosphata se C-Reactive Protein NT-Pro-B Natriuret Pep Total Protein Albumin Globulin Procalcitonin Vitals: Last Vital Signs Temp 98.4 F 03/04/21 08:00 Pulse 88 03/04/21 08:27 Resp 18 03/04/21 08:27 BP 121/82 03/04/21 08:00 Pulse Ox 91 03/04/21 08:27 Discharge Plan Discharge Patient Disposition: Home Condition: Stable Prescriptions: New sucralfate 100 mg/mL Suspension 1 g PO AC&BEDTIME 30 Days Qty: 400 RF: 0 aspirin 81 mg Tablet,Delayed Release (Dr/Ec) 81 mg PO Q24H 30 Days Qty: 30 RF: 0 doxycycline monohydrate 100 mg Tablet 100 mg PO BID 7 Days Qty: 14 RF: 0 Vitamin C 500 mg Tablet 500 mg PO BID 30 Days Qty: 60 RF: 0 pantoprazole 40 mg Tablet,Delayed Release (Dr/Ec) 40 mg PO BID 30 Days Qty: 60 RF: 0 cholecalciferol (vitamin D3) 25 mcg (1,000 unit) Tablet 1,000 unit PO DAILY 30 Days Qty: 30 RF: 0 zinc gluconate 50 mg Tablet 50 mg PO DAILY 30 Days Qty: 30 RF: 0 Advair Diskus 250-50 mcg/dose blister with device 1 inh inhalation BID Qty: 60 RF: 0 albuterol sulfate 90 mcg/actuation HFA aerosol inhaler 1 inh inhalation Q6H PRN (Reason: shortness of breath or wheezing) Qty: 8.5 RF: 0 Continued glyburide 5 mg tablet 2.5 mg PO BID@0900,1900 RF: 0 loperamide 2 mg tablet 2 mg PO Q4H PRN (Reason: UNKNOWN) RF: 0 multivitamin Tablet 1 tab PO DAILY@0900 RF: 0 acetaminophen 500 mg tablet 500 mg PO Q6H PRN (Reason: Pain) RF: 0 amlodipine 5 mg tablet 2.5 mg PO DAILY@0900 RF: 0 Accu-Chek Cristine Plus test strp Strip See Rx Instructions .ROUTE .COMPLEX Qty: 300 RF: 3 Bydureon BCise 2 mg/0.85 mL auto-injector 2 mg SUBCUT Q7D 30 Days Qty: 4.25 RF: 5 oxycodone-acetaminophen 10-325 mg tablet 1 tab PO Q4H PRN (Reason: Moderate Pain (Scale Score 5-6)) RF: 0 bupropion HCl [Wellbutrin XL] 150 mg tablet extended release 24 hr 150 mg PO DAILY@0900 RF: 0 sertraline [Zoloft] 100 mg tablet 100 mg PO DAILY@0900 RF: 0 pioglitazone 30 mg tablet 30 mg PO DAILY@0900 RF: 0 simvastatin 40 mg tablet 20 mg PO DAILY@0900 RF: 0 alprazolam 0.5 mg tablet 0.5 mg PO TID@0900,1200,1900 PRN (Reason: anxiety) RF: 0 metformin 1,000 mg tablet 1,000 mg PO BID@0900,1900 RF: 0 Zetia 10 mg tablet 10 mg PO DAILY@0900 RF: 0 Held carvedilol 12.5 mg tablet 12.5 mg PO BID@0900,1900 RF: 0 Hold Instructions: Resume on 04/01/21. hold until you see primary care Discontinued aspirin [Adult Low Dose Aspirin] 81 mg tablet,delayed release (DR/EC) 81 mg PO DAILY@0900 RF: 0 lisinopril 40 mg tablet 40 mg PO DAILY Qty: 90 RF: 3 Xarelto 2.5 mg tablet 2.5 mg PO BID RF: 0 cilostazol 100 mg tablet 100 mg PO BID@0900,1900 RF: 0 clopidogrel 75 mg tablet 75 mg PO DAILY@0900 RF: 0 hydrochlorothiazide 12.5 mg tablet 12.5 mg PO DAILY@0900 RF: 0 Discharge Orders: Discharge Order (Routine); Ordered 03/04/21 Ordered By: Kevin Wolfe Referrals: Neto Elizabeth MD [Primary Care Provider] - 03/13/21 10:00 am Saeed Cano MD [Physician] - 03/21/21 8:00 am Arti Parry MD [Physician] - 04/08/21 8:30 am Patient Instructions: Doxycycline (By mouth), Albuterol (By breathing), Aspirin (By mouth), Pantoprazole (By mouth), Fluticasone/Salmeterol (By breathing), Zinc Supplement (By mouth), Opioid Safety Activity Restrictions/Additional Instructions: -For COVID-19 pneumonia, use Advair, albuterol, vitamin C, zinc, vitamin D, doxycycline, steroids, -Please self isolate for 21 days, facemask, hand wash -Please follow-up with primary care provider about COVID-19 vaccination -Oxygen as needed -Follow-up with primary care provider in 1 week -Follow-up with lung doctor within a month -For your anemia, hemoglobin on discharge was 8.4, if you have bloody or black stools please come back to emergency room -On discharge I have stopped your Xarelto and Plavix and cilostazol -These can be resumed as outpatient after discussion with your primary care physician and vascular surgery -I have continued aspirin -Please continue to be mobile, if you develop calf pain or calf swelling, or bloody cough, or sudden onset of shortness of breath go to the emergency room -I have held your hydrochlorothiazide, lisinopril, Coreg on discharge as your blood pressures have been reasonable here, follow-up with primary care provider about resumption -Monitor blood sugars closely given diabetes Discharge Attestations Time Spent in Discharge Care*: greater than 30 min Quality Metrics Clinical Quality Measures During this hospital stay, did patient experience: None Coding Level of Care Code Acute g [facility] note Diagnoses Pneumonia due to COVID-19 virus U07.1; J12.82 Hypoxemia R09.02 Hyperkalemia E87.5 Hypotension I95.9 Anemia D64.9 Diabetes E11.9 ASHD (arteriosclerotic heart disease) I25.10 History of femoropopliteal bypass Z98.899
[2021-03-04 11:17] LABS: Glucose Point of Care 208 mg/dL (70-110)
[2021-03-04 14:51] LABS: Hemoglobin 8.2 g/dL (11.5-15.3)
[2021-03-04 17:16] LABS: Legionella Antibody <1:256 TITER
== END 2021-03-04 17:28 | disposition home or self-care (01) | DRG 177 ==
LOC: ER 07:20 → ICU 15:39 → MEDSURG 03-01 15:24
PROVIDERS: Hospitalist; Admitting Provider Internal Medicine; Emergency Provider Family Medicine; PCP Family Medicine; Visit Provider Family Medicine
DX: U07.1 COVID-19 (principal); J12.82 Pneumonia due to coronavirus disease 2019; J96.00 Acute respiratory failure, unspecified whether with hypoxia or hypercapnia; F33.9 Major depressive disorder, recurrent, unspecified; Z98.890 Other specified postprocedural states; I25.10 Atherosclerotic heart disease of native coronary artery without angina pectoris; Z95.1 Presence of aortocoronary bypass graft; E11.51 Type 2 diabetes mellitus with diabetic peripheral angiopathy without gangrene; F41.1 Generalized anxiety disorder; K21.9 Gastro-esophageal reflux disease without esophagitis; E78.5 Hyperlipidemia, unspecified; I10 Essential (primary) hypertension; E66.9 Obesity, unspecified; Z68.36 Body mass index [BMI] 36.0-36.9, adult; Z87.891 Personal history of nicotine dependence; E87.5 Hyperkalemia; I95.9 Hypotension, unspecified; D50.9 Iron deficiency anemia, unspecified; Z79.84 Long term (current) use of oral hypoglycemic drugs; Z79.891 Long term (current) use of opiate analgesic
CPT/HCPCS: 36415; 36416; 36600; 71045; 71275; 74176; 76882; 80048; 80053; 80202; 81001; 82009; 82274; 82533; 82607; 82728; 82746; 82803; 82962; 83540; 83550; 83605; 83735; 83880; 84100; 84145; 84443; 84484; 85014; 85018; 85025; 85378; 85610; 85730; 86140; 86403; 86713; 86850; 86900; 87040; 87070; 87205; 87426; 87635; 87641; 93005; 93306; 94640; 94664; 96365; 96367; 96372; 96375; 99285; J0610; J1100; J1756; J1815; J1940; J2270; J2405; J2543; J3370; J3535; J7030; J7050; Q0162; Q9967

== ENCOUNTER → 2021-03-10 07:32 | Outpatient (BNVA) | payer MEDICARE, MEDICAID, SELFPAY | PROVIDERS: PCP Family Medicine; Visit Provider Nurse Practitioner Psychiatric/Mental Health | DX: F33.2 Major depressive disorder, recurrent severe without psychotic features (principal); F41.1 Generalized anxiety disorder | CPT/HCPCS: 99214 ==

== ENCOUNTER → 2021-03-20 10:43 | Outpatient (BNVA) | payer MEDICARE, MEDICAID, SELFPAY | PROVIDERS: PCP Family Medicine; Visit Provider Family Medicine | DX: D50.0 Iron deficiency anemia secondary to blood loss (chronic) (principal); Z98.890 Other specified postprocedural states; Z09 Encounter for follow-up examination after completed treatment for conditions other than malignant neoplasm; E11.51 Type 2 diabetes mellitus with diabetic peripheral angiopathy without gangrene; U07.1 COVID-19 | CPT/HCPCS: 85018 ==

== ENCOUNTER → 2021-04-01 19:54 | Outpatient (BNVA) | payer MEDICARE, MEDICAID, SELFPAY | PROVIDERS: PCP Family Medicine | DX: R39.9 Unspecified symptoms and signs involving the genitourinary system (principal); N30.91 Cystitis, unspecified with hematuria | CPT/HCPCS: 81000; 87077; 87086; 87184 ==

== ENCOUNTER → 2021-04-03 11:52 | Outpatient (BNVA) | payer MEDICARE, MEDICAID, SELFPAY | PROVIDERS: PCP Family Medicine; Visit Provider Internal Medicine Cardiovascular Disease | DX: I10 Essential (primary) hypertension (principal); I25.10 Atherosclerotic heart disease of native coronary artery without angina pectoris; I65.29 Occlusion and stenosis of unspecified carotid artery; I73.9 Peripheral vascular disease, unspecified | CPT/HCPCS: 80048; 83880 ==

== ENCOUNTER → 2021-04-09 08:17 | Outpatient (BNVA) | payer MEDICARE, MEDICAID, SELFPAY | PROVIDERS: PCP Family Medicine; Visit Provider Nurse Practitioner Psychiatric/Mental Health | DX: F33.2 Major depressive disorder, recurrent severe without psychotic features (principal); F41.1 Generalized anxiety disorder | CPT/HCPCS: 99214 ==

== ENCOUNTER → 2021-04-21 10:23 | Outpatient (BNVA) | payer MEDICARE, MEDICAID, SELFPAY | PROVIDERS: PCP Family Medicine; Visit Provider Internal Medicine Cardiovascular Disease | DX: I25.10 Atherosclerotic heart disease of native coronary artery without angina pectoris (principal); E11.51 Type 2 diabetes mellitus with diabetic peripheral angiopathy without gangrene; I50.9 Heart failure, unspecified; I65.29 Occlusion and stenosis of unspecified carotid artery | CPT/HCPCS: 80048; 83880 ==

== ENCOUNTER → 2021-04-22 07:36 | Outpatient (BNVA) | payer MEDICARE, MEDICAID, SELFPAY | PROVIDERS: PCP Family Medicine; Visit Provider Nurse Practitioner Psychiatric/Mental Health | DX: F33.2 Major depressive disorder, recurrent severe without psychotic features (principal); F41.1 Generalized anxiety disorder | CPT/HCPCS: 99214 ==

== ENCOUNTER → 2021-04-29 10:36 | Outpatient (BNVA) | payer MEDICARE, MEDICAID, SELFPAY | PROVIDERS: PCP Family Medicine; Visit Provider Family Medicine | DX: D50.0 Iron deficiency anemia secondary to blood loss (chronic) (principal); E78.2 Mixed hyperlipidemia; E11.51 Type 2 diabetes mellitus with diabetic peripheral angiopathy without gangrene; Z00.00 Encounter for general adult medical examination without abnormal findings; I10 Essential (primary) hypertension | CPT/HCPCS: 80053; 80061; 83036; 83880; 85025 ==

== ENCOUNTER → 2021-05-06 07:54 | Outpatient (BNVA) | payer MEDICARE, MEDICAID, SELFPAY | PROVIDERS: PCP Family Medicine; Visit Provider Nurse Practitioner Psychiatric/Mental Health | DX: F33.2 Major depressive disorder, recurrent severe without psychotic features (principal); F41.1 Generalized anxiety disorder; Z63.4 Disappearance and death of family member | CPT/HCPCS: 99214 ==

== ENCOUNTER 2021-05-21 06:58 | Outpatient (CLI) | payer MEDICARE, MEDICAID, SELFPAY ==
--- NOTE | 2021-05-21 07:08 | NMCV_ITS ---
NM good perf SPECT r/s* [id number] Mi Barreto Age: 61 Gender: F : 1960 Exam Date: 05/21/2021 08:22 Ordering Phys: Lizeth Escobar MD ([email or web address]) Technologist: ARASH Moreira Exam Location: [facility] Indications: SHORTNESS OF BREATH STRESS TEST Please see separate stress test report in [facility] for full findings IMAGE PROTOCOL Rest/Stress 1 Lexiscan Day Radiopharmaceutical Dose (mCi) Administration Site Administered by Rest: Tc-99m 10.9 IV ARASH Moreira Sestamibi Stress:Tc-99m 32.4 IV ARASH Juarez Sestamibi Rest: 21-May-2021 60 Discovery 630 Stress: 21-May-2021 30 Discovery 630 0.4mg Lexiscan. Supine position only as patient was unable to lay prone. SPECT RESULTS Technical Quality: Good Raw Data Analysis: Normal Image Corrections: No attenuation or motion correction applied Summed Stress Score: 23 Summed Rest Score: 20 Summed Difference Score: 3 PERFUSION FINDINGS A large area of moderately severely decreases uptake in the basal and mid inferior, inferolateral and anterolateral regions with some reversibility in the anterolateral and mid inferolateral regions. Severely decreased tracer uptake also was noted in the apical inferior, apical lateral and LV apex. No significant reversibility was noted in these regions. FUNCTIONAL RESULTS (calculated via Gated SPECT) Stress Image LV EF (%): 50 Stress EDV (mL):161 TID: 0.99 Stress ESV (mL):81 FUNCTIONAL FINDINGS: Segmental wall motion analysis revealing mild diffuse hypokinesia of the LV apex IMPRESSIONS 1. Myocardial perfusion imaging revealing large areas of persistent decreased tracer uptake in the inferior, inferolateral, anterolateral and apical regions with minimal reversibility in the anterolateral and mid inferolateral regions suggesting myocardial scarring in the distribution of all the 3 coronary arteries-with some areas of ischemia in the distribution of the right coronary artery and circumflex artery. 2. Normal LV ejection fraction 50%. 3. Wall motion normalities as mentioned above. 4. Mildly dilated LV cavity with an end-systolic volume of 81 ml. Compared to the study from 12/28/2018, there is expansion of the areas of fixed defects. The ischemic burden appears to be less. Dr Lizeth Escobar MD [facility] (Electronically Signed) Final Date: 21 May 2021 12:54 S
--- NOTE | 2021-05-21 07:08 | ECG_ITS ---
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 Interpretive Statements NAME OF STUDY: LEXISCAN SESTAMIBI STRESS TEST INDICATION: Chest Pain; Shortness of Breath, PROCEDURE: At the baseline, the EKG revealed normal sinus rhythm with some nonspecific T wave changes in the inferior and anterolateral leads. The baseline blood pressure was 151/72 mm Hg with a heart rate of 70 beats/min. Lexiscan was infused over a period of 20 seconds. A total of 0.4 milligrams of Lexiscan was infused. The stress phase was continued for a total of 5 minutes. Heart rate at the end of the stress phase was 85 with a blood pressure 137/59. The EKG at the peak infusion revealed no significant changes. Sestamibi was injected 20 seconds after the Lexiscan infusion. Blood pressure at the end of the recovery phase was 140/57 with a heart rate of 83 per minute. CONCLUSION: 1. No significant EKG changes with the LexiScan infusion 2. No LexiScan induced chest pain or cardiac arrhythmia 3. Normal blood pressure and heart rate response 4. Sestamibi/sestamibi perfusion scan pending; see separate report. Electronically Signed On 05-22-2021 23:34:52 CDT by Lizeth Escobar M.D. [email or web address]
[2021-05-21 07:21] VITALS: BMI 31.0
[2021-05-21] MEDS: regadenoson 0.4 Mg/5 ml Syringe IVP (09:07)
[2021-05-21 09:28] VITALS: BP 140/57; PULSE 84
[2021-05-21] MEDS: ondansetron 2 mg/ML SDV 2 mL 4 MG IVP (09:31)
== END 2021-05-21 06:59 | disposition home or self-care (01) ==
LOC: CDL 07:00
PROVIDERS: PCP Family Medicine; Visit Provider Internal Medicine Cardiovascular Disease
DX: R07.9 Chest pain, unspecified (principal); R06.02 Shortness of breath
CPT/HCPCS: 78452; 93017; A9500; J2405; J2785

== ENCOUNTER → 2021-05-26 11:38 | Outpatient (BNVA) | payer MEDICARE, MEDICAID, SELFPAY | PROVIDERS: PCP Family Medicine; Visit Provider Family Medicine | DX: R06.02 Shortness of breath (principal); D50.0 Iron deficiency anemia secondary to blood loss (chronic); Z99.81 Dependence on supplemental oxygen | CPT/HCPCS: 85018 ==

== ENCOUNTER → 2021-06-03 08:42 | Outpatient (BNVA) | payer MEDICARE, MEDICAID, SELFPAY | PROVIDERS: PCP Family Medicine; Visit Provider Nurse Practitioner Psychiatric/Mental Health | DX: F33.2 Major depressive disorder, recurrent severe without psychotic features (principal); F41.1 Generalized anxiety disorder; Z63.4 Disappearance and death of family member | CPT/HCPCS: 99214 ==

== ENCOUNTER → 2021-06-17 08:06 | Outpatient (BNVA) | payer MEDICARE, MEDICAID, SELFPAY | PROVIDERS: PCP Family Medicine; Visit Provider Nurse Practitioner Psychiatric/Mental Health | DX: F33.2 Major depressive disorder, recurrent severe without psychotic features (principal); F41.1 Generalized anxiety disorder; Z63.4 Disappearance and death of family member | CPT/HCPCS: 99214 ==

== ENCOUNTER → 2021-07-01 09:34 | Outpatient (BNVA) | payer MEDICARE, MEDICAID, SELFPAY | PROVIDERS: PCP Family Medicine; Visit Provider Nurse Practitioner Psychiatric/Mental Health | DX: F33.2 Major depressive disorder, recurrent severe without psychotic features (principal); F41.1 Generalized anxiety disorder; Z63.4 Disappearance and death of family member | CPT/HCPCS: 99214 ==

== ENCOUNTER → 2021-08-01 10:35 | Outpatient (BNVA) | payer MEDICARE, MEDICAID, SELFPAY | PROVIDERS: PCP Family Medicine; Visit Provider Nurse Practitioner | DX: J02.9 Acute pharyngitis, unspecified (principal) | CPT/HCPCS: 87880 ==

== ENCOUNTER → 2021-08-19 09:33 | Outpatient (BNVA) | payer MEDICARE, MEDICAID, SELFPAY | PROVIDERS: PCP Family Medicine; Visit Provider Family Medicine | DX: Z00.00 Encounter for general adult medical examination without abnormal findings (principal); D50.0 Iron deficiency anemia secondary to blood loss (chronic); E11.51 Type 2 diabetes mellitus with diabetic peripheral angiopathy without gangrene; E78.2 Mixed hyperlipidemia | CPT/HCPCS: 80053; 80061; 85025 ==

== ENCOUNTER 2021-10-22 13:47 | Outpatient (CLI) | payer MEDICARE, MEDICAID, SELFPAY ==
--- NOTE | 2021-10-22 13:59 | USCV_ITS ---
Mi Barreto Age: 61 Gender: F : 1960 Exam Date: 10/22/2021 14:45 Ordering Phys: Terence Turner MD Technologist: EZEQUIEL [place] [facility] [place] Indication: f/u LEFT FEM-POP BPG January 2021; I also see a second graft at the proximal LEFT SFA. Upon questioning the patient, she states that both were done January 2021. Risk Factors: Previous Vascular Surgery: RIGHT LEFT BP: 140.0 / BP: 148.0/ 0 0 Waveform Velocity (cm/s) Velocity (cm/s) Waveform Triphasic 181.9 Iliac Prox 127.8 Biphasic Triphasic 203.0 Iliac Mid 137.2 Biphasic Triphasic 217.5 Iliac Distal 176.7 Biphasic Triphasic 82.3 ACADEMIC GUIDANCE SPECIALIST 250.7 Triphasic Triphasic 98.1 SFA Prox 97.9 Triphasic Triphasic 110.3 SFA Mid 41.9 Triphasic Triphasic 93.7 SFA Dist 44.3 Triphasic Triphasic 68.4 POP 59.8 Triphasic Triphasic 44.7 CERTIFIED CODING SPECIALIST 43.5 Triphasic Triphasic 26.0 DPA 13.6 Monophasic 0.9 BORIS 0.8 FINDINGS Mildly diminished resting ABIs bilaterally Monophasic Doppler waveform in the in the left dorsalis pedis artery Borderline low resting BORIS 0.9 on the right side Slightly diminished resting BORIS of 0.8 on the left side CONCLUSIONS 1. Abnormal resting BORIS and arterial Doppler waveform on the left side, suggestive of mild to moderate peripheral artery disease on the left side, possibly involving the infrapopliteal vessels 2. Possibly no significant arterial obstruction on the right side Dr Lizeth Escobar MD [facility] (Electronically Signed) Final Date: 22 October 2021 19:12 S
== END 2021-10-22 13:48 | disposition home or self-care (01) ==
LOC: RAD 13:48
PROVIDERS: PCP Family Medicine; Visit Provider Surgery
DX: I70.203 Unspecified atherosclerosis of native arteries of extremities, bilateral legs (principal)
CPT/HCPCS: 93925

== ENCOUNTER → 2021-12-25 11:34 | Outpatient (BNVA) | payer MEDICARE, MEDICAID, SELFPAY | PROVIDERS: PCP Family Medicine; Visit Provider Family Medicine | DX: E78.5 Hyperlipidemia, unspecified (principal); I10 Essential (primary) hypertension; E11.9 Type 2 diabetes mellitus without complications; M50.00 Cervical disc disorder with myelopathy, unspecified cervical region | CPT/HCPCS: 80053; 80061; 83036; 85025 ==

== ENCOUNTER → 2022-02-11 09:35 | Outpatient (BNVA) | payer MEDICAID, SELFPAY | PROVIDERS: PCP Family Medicine; Visit Provider Anesthesiology Pain Medicine | DX: M50.00 Cervical disc disorder with myelopathy, unspecified cervical region (principal); M75.02 Adhesive capsulitis of left shoulder; M79.601 Pain in right arm | CPT/HCPCS: 99214 ==

== ENCOUNTER → 2022-03-16 09:06 | Outpatient (BNVA) | payer MEDICAID, SELFPAY | PROVIDERS: PCP Family Medicine; Visit Provider Anesthesiology Pain Medicine | DX: M79.601 Pain in right arm (principal); M50.00 Cervical disc disorder with myelopathy, unspecified cervical region; M75.02 Adhesive capsulitis of left shoulder; M54.9 Dorsalgia, unspecified | CPT/HCPCS: 99213; 99214 ==

== ENCOUNTER → 2022-04-29 10:26 | Outpatient (BNVA) | payer MEDICARE, MEDICAID, SELFPAY | PROVIDERS: PCP Family Medicine; Visit Provider Family Medicine | DX: D64.9 Anemia, unspecified (principal); M19.012 Primary osteoarthritis, left shoulder; E78.5 Hyperlipidemia, unspecified; E11.51 Type 2 diabetes mellitus with diabetic peripheral angiopathy without gangrene; I25.10 Atherosclerotic heart disease of native coronary artery without angina pectoris; Z98.890 Other specified postprocedural states; M50.00 Cervical disc disorder with myelopathy, unspecified cervical region; Z00.00 Encounter for general adult medical examination without abnormal findings; F41.1 Generalized anxiety disorder; E78.2 Mixed hyperlipidemia | CPT/HCPCS: 80053; 80061; 83036; 85025 ==

== ENCOUNTER 2022-05-01 06:22 | Outpatient (CLI) | payer MEDICARE, MEDICAID, SELFPAY ==
--- NOTE | 2022-05-01 07:00 | USCV_ITS ---
Mi Barreto Age: 61 Gender: F : 1960 Exam Date: 05/01/2022 06:44 Ordering Phys: Lizeth Escobar MD ([email or web address]) Technologist: JANUSZ Exam Location: [facility] Indication: H/O RIGHT CEA, EVAL FOR CAROTID STENOSIS Risk Factors: Previous Vascular Surgery: Right Brachial BP: / Left Brachial BP: / Right Left Velocity (cm/s) Spectral Plaque Velocity (cm/s) Spectral Plaque Syst/Diast Broadening Syst/Diast Broadening 83.70/ 37.60 Prox CCA 177.50/ 21.00 60.70/ 22.20 Mid CCA 172.20/ 36.80 57.30/ 17.90 Distal CCA 120.90/ 28.90 39.60/ 21.00 Prox ICA 415.00/ 102.20 77.10/ 38.90 Mid ICA 251.40/ 80.30 57.40/ 29.60 Distal ICA 119.60/ 31.60 78.80 ECA 385.35 0.92 ICA/CCA 3.43 Antegrade Vertebral Antegrade 25.60/ 13.20 cm/s 37.50/ 11.80 cm/s [place] Subclavian Tri 86.20 163.6 0 FINDINGS Heavy heterogenous plaques at the left bifurcation and ICA Minimal plaques of the right bifurcation and ICA Mild diffuse plaques in the common carotid arteries bilaterally Antegrade flow in the vertebral arteries bilaterally Elevated velocity at the left proximal external carotid artery CONCLUSIONS Heavy heterogenous plaques at the left bifurcation and internal carotid arteryMinimal plaques of the right bifurcation and ICA , consistent with greater than 70% stenosis. Minimal plaques of the right bifurcation and internal carotid artery, suggesting less than 50% stenosis. Elevated velocity in the external carotid artery on the left side, suggestive of hemodynamically significant stenosis. Mild diffuse plaques in the common carotid arteries bilaterally Compared to the study from 11/19/2020, there is worsening of stenosis on the left side Dr Lizeth Escobar MD [facility] (Electronically Signed) Final Date: 01 May 2022 18:43 S
== END 2022-05-01 06:23 | disposition home or self-care (01) ==
LOC: RAD 06:22
PROVIDERS: PCP Family Medicine; Visit Provider Internal Medicine Cardiovascular Disease
DX: I77.9 Disorder of arteries and arterioles, unspecified (principal); I65.23 Occlusion and stenosis of bilateral carotid arteries
CPT/HCPCS: 93880

== ENCOUNTER → 2022-12-03 10:37 | Outpatient (BNVA) | payer MEDICARE, MEDICAID, SELFPAY | PROVIDERS: PCP Family Medicine; Visit Provider Nurse Practitioner Family | DX: N30.01 Acute cystitis with hematuria (principal) | CPT/HCPCS: 81000 ==

== ENCOUNTER → 2023-03-02 09:19 | Outpatient (BNVA) | payer MEDICAID, SELFPAY | PROVIDERS: PCP Family Medicine; Visit Provider Family Medicine | DX: I10 Essential (primary) hypertension; E11.51 Type 2 diabetes mellitus with diabetic peripheral angiopathy without gangrene; M12.812 Other specific arthropathies, not elsewhere classified, left shoulder; F33.2 Major depressive disorder, recurrent severe without psychotic features; E78.2 Mixed hyperlipidemia; I65.23 Occlusion and stenosis of bilateral carotid arteries | CPT/HCPCS: 80053; 80061; 83036; 85025 ==

== ENCOUNTER → 2023-06-07 10:13 | Outpatient (BNVA) | payer MEDICAID, SELFPAY | PROVIDERS: PCP Family Medicine; Visit Provider Family Medicine | DX: E78.2 Mixed hyperlipidemia (principal); I10 Essential (primary) hypertension; E11.51 Type 2 diabetes mellitus with diabetic peripheral angiopathy without gangrene; F33.2 Major depressive disorder, recurrent severe without psychotic features; E78.5 Hyperlipidemia, unspecified | CPT/HCPCS: 80053; 80061; 83036 ==

== ENCOUNTER → 2024-01-03 09:32 | Outpatient (BNVA) | payer MEDICAID, SELFPAY | PROVIDERS: PCP Family Medicine; Visit Provider Family Medicine | DX: E78.2 Mixed hyperlipidemia; E11.51 Type 2 diabetes mellitus with diabetic peripheral angiopathy without gangrene | CPT/HCPCS: 80053; 80061; 83036; 85025 ==

== ENCOUNTER 2024-01-14 11:33 | Outpatient (CLI) | payer MEDICARE, MEDICAID, SELFPAY ==
--- NOTE | 2024-01-14 12:00 | MM_ITS ---
WS: [id number] BILATERAL SCREENING DIGITAL TOMOSYNTHESIS MAMMOGRAM WITH CAD HISTORY: screening COMPARISON: 06/18/2017, 11/19/2015 Bilateral CC and MLO views with tomosynthesis and synthetic mammography submitted. Computer aided det ection analyzed. Breast composition: There are scattered areas of fibroglandular density. No suspicious masses, microc alcifications or architectural distortion. Benign calcification central posterior LEFT breast. MM/[place] [id number] IMPRESSION: BI-RADS: 2-Benign FOLLOW UP: 1 Year Follow-up
== END 2024-01-14 11:34 | disposition home or self-care (01) ==
PROVIDERS: PCP Family Medicine; Visit Provider Family Medicine
DX: Z12.31 Encounter for screening mammogram for malignant neoplasm of breast (principal); R92.323 Mammographic fibroglandular density, bilateral breasts; R92.1 Mammographic calcification found on diagnostic imaging of breast
CPT/HCPCS: 77063; 77067

== ENCOUNTER → 2024-03-01 13:17 | Outpatient (BNVA) | payer MEDICARE, MEDICAID, SELFPAY | PROVIDERS: PCP Family Medicine; Visit Provider Family Medicine | DX: I10 Essential (primary) hypertension (principal); E11.51 Type 2 diabetes mellitus with diabetic peripheral angiopathy without gangrene | CPT/HCPCS: 80048; 83036 ==

== ENCOUNTER → 2024-03-10 16:38 | Outpatient (BNVA) | payer MEDICARE, MEDICAID, SELFPAY | PROVIDERS: PCP Family Medicine; Visit Provider Nurse Practitioner | DX: J02.9 Acute pharyngitis, unspecified (principal) | CPT/HCPCS: 87880 ==

== ENCOUNTER → 2024-03-21 13:42 | Outpatient (BNVA) | payer MEDICARE, MEDICAID, SELFPAY | PROVIDERS: PCP Family Medicine; Visit Provider Internal Medicine Cardiovascular Disease | DX: I25.10 Atherosclerotic heart disease of native coronary artery without angina pectoris (principal); I65.23 Occlusion and stenosis of bilateral carotid arteries; I73.9 Peripheral vascular disease, unspecified; I10 Essential (primary) hypertension; E78.2 Mixed hyperlipidemia; I50.9 Heart failure, unspecified; I11.0 Hypertensive heart disease with heart failure; Z87.891 Personal history of nicotine dependence | CPT/HCPCS: 99214 ==

== ENCOUNTER → 2024-07-15 10:53 | Outpatient (BNVA) | payer MEDICARE, MEDICAID, SELFPAY | PROVIDERS: PCP Family Medicine; Visit Provider Emergency Medicine | DX: R39.9 Unspecified symptoms and signs involving the genitourinary system | CPT/HCPCS: 81000 ==

== ENCOUNTER → 2024-07-29 12:50 | Outpatient (BNVA) | payer MEDICARE, MEDICAID, SELFPAY | PROVIDERS: PCP Family Medicine; Visit Provider Emergency Medicine | DX: J06.9 Acute upper respiratory infection, unspecified (principal) | CPT/HCPCS: 87400; 87426 ==

== ENCOUNTER → 2024-08-03 15:24 | Outpatient (BNVA) | payer MEDICARE, MEDICAID, SELFPAY | PROVIDERS: PCP Family Medicine; Visit Provider Podiatrist Foot & Ankle Surgery | DX: L60.3 Nail dystrophy (principal); E11.51 Type 2 diabetes mellitus with diabetic peripheral angiopathy without gangrene; G62.9 Polyneuropathy, unspecified; I73.9 Peripheral vascular disease, unspecified; Z79.84 Long term (current) use of oral hypoglycemic drugs | CPT/HCPCS: 11721; 99203 ==

== ENCOUNTER → 2024-08-11 14:15 | Outpatient (BNVA) | payer MEDICARE, MEDICAID, SELFPAY | PROVIDERS: PCP Family Medicine; Visit Provider Nurse Practitioner Family | DX: R39.9 Unspecified symptoms and signs involving the genitourinary system (principal) | CPT/HCPCS: 81000 ==

== ENCOUNTER → 2024-08-14 11:09 | Outpatient (BNVA) | payer MEDICARE, MEDICAID, SELFPAY | PROVIDERS: PCP Family Medicine; Visit Provider Family Medicine | DX: I25.10 Atherosclerotic heart disease of native coronary artery without angina pectoris (principal); E11.51 Type 2 diabetes mellitus with diabetic peripheral angiopathy without gangrene | CPT/HCPCS: 80053; 80061; 83036; 85025 ==

== ENCOUNTER → 2024-08-21 13:41 | Outpatient (BNVA) | payer MEDICARE, MEDICAID, SELFPAY | PROVIDERS: PCP Family Medicine; Visit Provider Family Medicine | DX: R30.0 Dysuria (principal) | CPT/HCPCS: 81000 ==

== ENCOUNTER → 2024-10-17 13:34 | Outpatient (BNVA) | payer MEDICARE, MEDICAID, SELFPAY | PROVIDERS: PCP Family Medicine; Visit Provider Internal Medicine Cardiovascular Disease | DX: I25.10 Atherosclerotic heart disease of native coronary artery without angina pectoris (principal); I65.23 Occlusion and stenosis of bilateral carotid arteries; I73.9 Peripheral vascular disease, unspecified; E78.2 Mixed hyperlipidemia; I11.0 Hypertensive heart disease with heart failure; I50.9 Heart failure, unspecified | CPT/HCPCS: 99214 ==

== ENCOUNTER → 2024-10-31 13:56 | Outpatient (BNVA) | payer MEDICARE, MEDICAID, SELFPAY | PROVIDERS: PCP Family Medicine; Visit Provider Podiatrist Foot & Ankle Surgery | DX: E11.51 Type 2 diabetes mellitus with diabetic peripheral angiopathy without gangrene (principal); L60.3 Nail dystrophy; L84 Corns and callosities; G62.9 Polyneuropathy, unspecified; I73.9 Peripheral vascular disease, unspecified; Z79.84 Long term (current) use of oral hypoglycemic drugs | CPT/HCPCS: 11056; 11721 ==

== ENCOUNTER → 2025-01-04 13:56 | Outpatient (BNVA) | payer MEDICARE, MEDICAID, SELFPAY | PROVIDERS: PCP Family Medicine; Visit Provider Podiatrist Foot & Ankle Surgery | DX: E11.8 Type 2 diabetes mellitus with unspecified complications (principal); L60.3 Nail dystrophy; L84 Corns and callosities; E11.51 Type 2 diabetes mellitus with diabetic peripheral angiopathy without gangrene; G62.9 Polyneuropathy, unspecified; I73.9 Peripheral vascular disease, unspecified; Z79.84 Long term (current) use of oral hypoglycemic drugs | CPT/HCPCS: 11056; 11721 ==

== ENCOUNTER → 2025-01-15 12:45 | Outpatient (BNVA) | payer MEDICARE, MEDICAID, SELFPAY | PROVIDERS: PCP Family Medicine; Visit Provider Family Medicine | DX: I10 Essential (primary) hypertension (principal); E78.2 Mixed hyperlipidemia; E11.51 Type 2 diabetes mellitus with diabetic peripheral angiopathy without gangrene | CPT/HCPCS: 80053; 80061; 83036; 85025 ==

== ENCOUNTER → 2025-01-17 12:59 | Outpatient (BNVA) | payer MEDICARE, MEDICAID, SELFPAY | PROVIDERS: PCP Family Medicine; Visit Provider Nurse Practitioner | DX: R39.9 Unspecified symptoms and signs involving the genitourinary system (principal) | CPT/HCPCS: 81000; 87077; 87086; 87184 ==

== ENCOUNTER → 2025-04-03 10:12 | Outpatient (BNVA) | payer MEDICARE, MEDICAID, SELFPAY | PROVIDERS: PCP Family Medicine; Visit Provider Family Medicine | DX: I10 Essential (primary) hypertension (principal); E78.2 Mixed hyperlipidemia; E11.51 Type 2 diabetes mellitus with diabetic peripheral angiopathy without gangrene | CPT/HCPCS: 80053; 80061; 83036; 85025 ==